=== PATIENT | female | born 1980 | race Hispanic/Latino ===

== ENCOUNTER → 2024-12-15 | Outpatient (CLI) | payer BC, SELFPAY ==
[2024-12-15 15:36] LABS: Basophil# 0.02 X10^3/uL; Basophil% 0.6 % (0-1); Eosinophil# 0.02 X10^3/uL; Eosinophils% 0.6 % (0-5); Hemoglobin 13.2 g/dL (12.0-15.0); Lymphocyte % 24.9 % (19-41); Mean Corpuscular Hgb 29.5 pg (27.0-32.0); Mean Corpuscular Volume 89.3 fL (81-99); Mean Platelet Vol. 12.4 fl (6.2-12.0); Monocyte# 0.35 X10^3/uL; Monocyte% 10.9 % (0-10); NRBC Flagged by Analyzer 0 % (0-5); Neutrophil # 2.01 X10^3/uL (2.7-7.7); Neutrophil % 62.7 % (47-70); Platelet Count 180 K/mm3 (150-450); RBC Distribution Width CV 14.5 % (11.6-14.6); RBC Distribution Width SD 46.8 fl (35.1-43.9); Red Blood Count 4.48 M/mm3 (4.2-5.4); White Blood Count 3.2 K/mm3 (4.4-11.0)
[2024-12-15 16:14] LABS: PTHIN 30 pg/mL (11-61)
[2024-12-15 16:21] LABS: ALB/GLOB Ratio 1.2 RATIO (0.9-2.4); AST(SGOT) 31 U/L (<=31); Alanine Aminotransfer ALT/SGPT 33 U/L (<=34); Albumin, Serum 4.6 g/dL (3.5-5.0); Alkaline Phosphatase 69 U/L (35-104); Anion Gap 12 (5-15); BUN 12 mg/dL (4-19); BUN/Creat Ratio 18.9 RATIO (10-20); Calcium,Total 9.3 mg/dL (7.6-11.0); Carbon Dioxide 21.2 mmol/L (21.0-32.0); Chloride 107 mmol/L (98-108); Cholesterol 190 mg/dL (<=200); Creatinine, Serum 0.63 mg/dL (0.70-1.20); EST Glomerular Filtration Rate 111 (>60); Globulin 3.9 g/dL (2.2-4.2); Glucose 86 mg/dL (70-99); High Density Lipoprotein 73 mg/dL; Low Density Lipoprotein Calc. 106 mg/dL; Potassium 4.1 mmol/L (3.3-5.1); Protein, Total 8.5 g/dL (5.9-8.4); Sodium Level 140 mmol/L (133-145); Triglycerides 57 mg/dL; Very Low Density Lipoprotein 11 mg/dL (5-40)
[2024-12-15 16:25] LABS: CRP < 3.00 mg/L (0.0-3.0)
[2024-12-17 08:08] LABS: Complement C3 70 mg/dL (82-167); PROLACTIN 10.8 ng/mL (4.8-33.4)
[2024-12-18 18:07] LABS: ANA- Speckled Pattern >1:1280 (.); Anti-Centromere B Ab <0.2 AI (0.0-0.9); Anti-Chromatin <0.2 AI (0.0-0.9); Anti-Jo <0.2 AI (0.0-0.9); Anti-Nuclear Antibody Test Positive (.); Anti-Scleroderma-70 AB <0.2 AI (0.0-0.9); Anti-dsDNA Ab 1 IU/mL (0-9); RNP Ab 0.2 AI (0.0-0.9); SJOGREN'S Anti-SS-A test > 8.0 AI (0.0-0.9); SJOGREN'S Anti-SS-B test < 0.2 AI (0.0-0.9); Smith Ab <0.2 AI (0.0-0.9)
== END | disposition home or self-care (01) ==
LOC: MTLAB 13:07
PROVIDERS: PCP Family Medicine; Referring Provider Family Medicine; Visit Provider Family Medicine
DX: D35.2 Benign neoplasm of pituitary gland (principal); Z13.220 Encounter for screening for lipoid disorders; M35.00 Sjogren syndrome, unspecified
CPT/HCPCS: 36415; 80053; 80061; 83970; 84146; 84443; 85025; 86038; 86140; 86160; 86225; 86235

== ENCOUNTER → 2024-12-27 | Outpatient (CLI) | payer BC, SELFPAY ==
--- NOTE | 2024-12-27 11:29 | BI_ITS ---
EXAM: SCRN MAMM (CAD)W/JOSEFINA BILAT 12/27/2024 CLINICAL HISTORY: F, Age 44 y/o , SCREENING TECHNIQUE: Bilateral screening digital breast tomosynthesis with 2D and 3D images. Computer aided detection. COMPARISON: Baseline examination. No priors. FINDINGS: TISSUE DENSITY: The breast tissue is extremely dense which lowers the sensitivity of mammography. The mammogram demonstrates that the patient has dense breasts. Supplemental screening with whole breast ultrasound or MRI may be considered for further evaluation. Bilateral Breast Mammographic Findings: No significant masses, calcifications or other abnormalities are identified. BI/SCRN MAMM (CAD)W/JOSEFINA BILAT IMPRESSION: Right Breast: BIRADS 1 NEGATIVE. Left Breast: BIRADS 1 NEGATIVE. OVERALL FINAL ASSESSMENT: BIRADS 1 NEGATIVE. RECOMMENDATION: Routine annual follow-up in 1 Year A letter with findings and recommendations will be mailed to the patient. Reading Location: [id number]
== END | disposition home or self-care (01) ==
LOC: OPBI 11:28
PROVIDERS: PCP Family Medicine; Referring Provider Family Medicine; Visit Provider Family Medicine
DX: Z12.31 Encounter for screening mammogram for malignant neoplasm of breast (principal)
CPT/HCPCS: 77063; 77067

== ENCOUNTER → 2025-04-26 | Outpatient (CLI) | payer BC, SELFPAY ==
--- NOTE | 2025-04-26 12:21 | BD_ITS ---
PROCEDURE: DEXA BONE DENSITY STUDY 04/26/2025 REASON FOR EXAM: F, age 45 y/o . Sjogren's disease. TECHNIQUE: DEXA BONE DENSITY STUDY COMPARISON: None FINDINGS: BMD and T-SCORES Lumbar spine: 0.878 g/cm2, T-score -1.5 Levels: L1 through L4 Left femoral neck: 0.764 g/cm2, T-score -0.8 Femoral neck comparison data not recommended for monitoring change. Left total hip: 0.783 g/cm2, T-score -1.3 Right femoral neck: 0.742 g/cm2, T-score -1.0 Femoral neck comparison data not recommended for monitoring change. Right total hip: 0.771 g/cm2, T-score -1.4 The World Health Organization has defined the following categories based on bone density: Normal bone density: T-score equal to or greater than -1.0 Osteopenia: T-score between -1.0 and -2.5 Osteoporosis: T-score equal to or less than -2.5 The patient does meet the pharmacological treatment recommendations for prevention of osteoporosis. BD/Dexa Bone Density Study IMPRESSION: OSTEOPENIA. Recommend follow-up as clinically warranted. Reading Location: [place] [id number]
--- OUTSIDE RECORDS SUMMARY | 2025-04-26 19:27 | XMS RPT_ITS | CCD ---
Author Organization [facility] Care Team Providers Care Bait Man Name Role Phone Self, Self Primary Care Provider Unavailsarah beth Martinez MD, Dr. Edge Primary Care Provider Juan SAXENA, Dr. Edge Attending Provider [phone] Juan SAXENA, Dr. Edge Referring Provider [phone] Unavailable Primary Care Provider UnavailJAIME Ramírez Attending Unavailable RIEHM, TIFFANY Referring Unavailable JAIME GEORGE Attending Unavailable RIEHM, TIFFANY Referring Unavailable RIEHM, TIFFANY Referring Unavailable JAIME GEORGE Attending Unavailable RIEHM, TIFFANY Referring Unavailable Self, Self Primary Care Provider Unavailsarah beth Martinez MD, Yasmine A Primary Care Provider [phone] Yasmine Martinez Primary Care Unavailable MartinezYasmine Attending Unavailable Martinez, Yasmine Referring Unavailable Martinez, Yasmine Primary Care Unavailable MartinezYasmine Attending Unavailable Martinez, Yasmine Referring Unavailable Martinez, Yasmine Attending Unavailable Martinez, Yasmine Referring Unavailable Martinez, Yasmine Primary Care Unavailable SMITH, LORE L Attending Unavailable SMITH, LORE L Referring Unavailable SMITH, LORE L Admitting Unavailable SELF, SELF Primary Care Unavailable SMITH, LORE L Attending Unavailable SELF, SELF Primary Care Unavailable SELF, SELF Referring Unavailable SMITH, LORE L Referring Unavailable MARTINEZ, YASMINE A Primary Care Unavailable SMITH, LORE L Attending Unavailable MARTINEZ, YASMINE A Primary Care Unavailable SELF, SELF Referring Unavailable SMITH, LORE L Admitting Unavailable SMITH, LORE L Attending Unavailable SELF, SELF Primary Care Unavailable RIEHM, TIFFANY L Referring Unavailable RIEHM, TIFFANY L Attending Unavailable SELF, SELF Primary Care Unavailable SELF, SELF Primary Care Unavailable SELF, SELF Referring Unavailable TARIK CA Attending Unavailable MARTINEZ, YASMINE A Primary Care Unavailable ANA GRECO Attending Unavailable ANA GRECO Referring Unavailable SELF, SELF Primary Care Unavailable RIEHM, TIFFANY L Referring Unavailable RIEHM, TIFFANY L Attending Unavailable SELF, SELF Primary Care Unavailable RIEHM, TIFFANY L Referring Unavailable RIEHM, TIFFANY L Attending Unavailable RIEHM, TIFFANY L Attending Unavailable SELF, SELF Primary Care Unavailable SELF, SELF Referring Unavailable RIEHM, TIFFANY L Referring Unavailable MARTINEZ, YASMINE A Primary Care Unavailable ANA GRECO Attending Unavailable RIEHM, TIFFANY L Attending Unavailable SELF, SELF Referring Unavailable SELF, SELF Primary Care Unavailable TATO WILCOX Attending Unavailable JUAN, YASMINE A Primary Care Unavailable TATO WILCOX Referring Unavailable SHANNAN GOMEZ Attending Unavailable MORALES SMITH Referring Unavailable JUAN, YASMINE A Primary Care Unavailable JUAN YASMIEN A Primary Care Unavailable TATO WILCOX Attending Unavailable TATO WILCOX Referring Unavailable TATO WILCOX Attending Unavailable JUAN, YASMINE A Primary Care Unavailable TATO WILCOX M Referring Unavailable TATO WILCOX M Attending Unavailable JUAN YASMINE A Primary Care Unavailable TATO WILCOX Referring Unavailable Yasmine Martinez MD Primary Care Provider [phone] Medications Current Medications Medication Drug Class(es) Dates Sig (Normalized) Sig (Original) ascorbic acid 1000 mg oral tablet (6 sources) Vitamin C take 1 tablet by mouth once daily Ascorbic Acid 1000 MG tablet Take 1 tablet by mouth daily. Active aspirin 325 mg oral tablet (3 sources) Platelet Aggregation Inhibitor, Nonsteroidal Anti-inflammatory Drug Start: 03-26-2025 take 1 tablet by mouth once daily Aspirin 325 MG tablet Take 1 by mouth daily. 42 tablet 03/26/2025 Active B Complex capsule (3 sources) take 1 capsule by mouth once daily B Complex capsule Take 1 capsule by mouth daily. Active celecoxib 100 mg oral capsule (3 sources) Nonsteroidal Anti-inflammatory Drug Start: 03-09-2025 take 1 capsule by mouth twice daily as needed for pain Celecoxib 100 MG capsule Indications: Neck pain , Pain of cervical facet joint , Myofascial pain syndrome, cervical , Cervicogenic headache 1 po bid prn pain. Dont take other NSAIDs w this. Stop if persistent stomach pain. 20 capsule 1 03/09/2025 Active DISABILITY PLACARD (3 sources) Start: 03-26-2025 End: 06-29-2025 DISABILITY PLACARD End Date: 06/29/2025 1 Each 03/26/2025 06/29/2025 Active folic acid 0.4 mg oral tablet (6 sources) take 1 tablet by mouth once daily Folic Acid 400 MCG tablet Take 1 tablet by mouth daily. Active magnesium oxide 400 mg oral tablet (3 sources) take 1 tablet by mouth once daily magnesium oxide 400 MG tablet Take 1 tablet by mouth daily. Active oxyCODONE hydrochloride 5 mg oral tablet (4 sources) Opioid Agonist Start: 03-26-2025 End: 03-30-2025 oxyCODONE 5 MG tablet Indications: Tear of lateral meniscus of right knee, unspecified tear type, unspecified whether old or current tear, subsequent encounter Take 1-2 by mouth every 8 hours as needed for pain. Patient requires >30 MED per day and/or >7 days of medication due to orthopedic surgery. 20 tablet 03/26/2025 Active Start: 03-26-2025 End: 03-26-2025 take 1 tablet by mouth every four hours as needed 5 mg, Oral, EVERY 4 HOURS NEEDED, Starting on Wed03/26/25 at 0838, Until Wed03/26/25 at 1247, Moderate Pain, Recovery Start: 03-26-2025 5 mg, Oral, NEEDED, 1 dose, Starting on Wed03/26/25 at 0838, Until Wed03/26/25 at 0859, Moderate Pain, May give once at least one hour post oxycodone prn order if dose previously documented as ineffective and did not result in adverse effects (RR less than 10, negative change in RASS of 2 or more). , Recovery promethazine hydrochloride 12.5 mg oral tablet (3 sources) Phenothiazine Start: 03-26-2025 take 1 tablet by mouth every twelve hours as needed for nausea Promethazine HCl 12.5 MG tablet Take 1 by mouth every 12 hours as needed for nausea. 20 tablet 03/26/2025 Active propranolol hydrochloride 10 mg oral tablet (6 sources) beta-Adrenergic Jermain Start: 01-21-2025 Propranolol 10 MG tablet 01/21/2025 Active tiZANidine 2 mg oral tablet (3 sources) Central alpha-2 Adrenergic Agonist Start: 03-09-2025 take 1-2 tablets by mouth twice daily as needed for pain Tizanidine 2 MG tablet 1-2 pills po BID prn spasms/pain 20 tablet 1 03/09/2025 Active Completed/Discontinued Medications Medication Drug Class(es) Dates Sig (Normalized) Sig (Original) calcium chloride 0.0014 meq/ml / potassium chloride 0.004 meq/ml / sodium chloride 0.103 meq/ml / sodium lactate 0.028 meq/ml injectable solution (1 source) Start: 03-26-2025 End: 03-26-2025 Intravenous, at 20 mL/hr, CONTINUOUS, Starting on Wed03/26/25 at 0630, Until Wed03/26/25 at 1247, Pre-op/Pre-Proc clonazePAM 0.5 mg disintegrating oral tablet (6 sources) Benzodiazepine clonazePAM 0.5 M G Tab Dispersible tablet daily. Stopped taking temporarily leading up surgery Active 2 ml fentaNYL 0.05 mg/ml injection (1 source) Opioid Agonist Start: 03-26-2025 End: 03-26-2025 25 mcg, Intravenous, Administer over 2 Minutes, EVERY 10 MINUTES NEEDED, 4 doses, Starting on Wed03/26/25 at 0838, Until Wed03/26/25 at 0931, Severe Pain, Recovery 1 ml haloperidol 5 mg/ml prefilled syringe (1 source) Typical Antipsychotic Start: 03-26-2025 End: 03-26-2025 take 1 mg intravenously every hour as needed 1 mg, Intravenous, EVERY 1 HOUR NEEDED, 2 doses, Starting on Wed03/26/25 at 0838, Until Wed03/26/25 at 1247, Nausea, SECOND line antiemetic, Recovery lidocaine 0.9% buffered in sodium phosphate injection SOSY 1 mL (1 source) Start: 03-26-2025 End: 03-26-2025 take 1 dose intravenously once 1 mL, Intradermal, ONCE NEEDED, 1 dose, Starting on Wed03/26/25 at 0625, Until Wed03/26/25 at 1247, Other, Use for peripheral IV insertion, Use when inserting peripheral IV., Pre-op/Pre-Proc meloxicam 7.5 mg oral tablet (5 sources) Nonsteroidal Anti-inflammatory Drug Start: 11-29-2024 End: 2025 take 1 tablet by mouth once daily Meloxicam 7.5 MG tablet Indications: Primary osteoarthritis of right knee Take 1 tablet by mouth daily. 30 tablet 1 11/29/2024 2025 Discontinued 2 ml ondansetron 2 mg/ml injection (1 source) Serotonin-3 Receptor Antagonist Start: 03-26-2025 End: 03-26-2025 4 mg, Intravenous, ONCE NEEDED, 1 dose, Starting on Wed03/26/25 at 0838, Until Wed03/26/25 at 0948, Nausea / Vomiting, FIRST line antiemetic, Do not administer within 6 hours of intra-operative dose., Recovery 250 ml sodium chloride 9 mg/ml injection (1 source) Start: 03-26-2025 End: 03-26-2025 Intravenous, at 20 mL/hr, CONTINUOUS, Starting on Wed03/26/25 at 0630, Until Wed03/26/25 at 1247, Pre-op/Pre-Proc Problems Active Problems Problem Classification Problem Date Documented Date Episodic/Chronic Immunizations and screening for infectious disease (4 sources) Contact with or exposure to other viral diseases; Translations: [Exposure to confirmed case of COVID-19] Onset: 03-08-2025 2025 Episodic Joint disorders and dislocations; trauma-related (10 sources) Tear of lateral meniscus of knee; Translations: [Other tear of lateral meniscus, current injury, right knee, initial encounter] Onset: 02-16-2025 02-16-2025 Episodic Osteoarthritis (10 sources) Osteoarthritis of right knee joint; Translations: [Unilateral primary osteoarthritis, right knee] Onset: 12-05-2024 11-29-2024 Chronic Other connective tissue disease (3 sources) Rotator cuff impingement syndrome; Translations: [Impingement syndrome of unspecified shoulder] Onset: 03-08-2025 03-08-2025 Episodic Other connective tissue disease (2 sources) Pain in bilateral legs; Translations: [Pain in right leg] 04-25-2025 Episodic Other fractures (1 source) Wedge compression fracture of T5-T6 vertebra, initial encounter for closed fracture; Translations: [Wedge compression fracture of T5-T6 vertebra, initial encounter for closed fracture] Onset: 04-05-2025 Episodic Other nervous system disorders (2 sources) Other chronic pain; Translations: [Other chronic pain] Onset: 2025 Chronic Other nervous system disorders (2 sources) Numbness of lower limb ; Translations: [Anesthesia of skin] 04-25-2025 Episodic Other non-traumatic joint disorders (6 sources) Pain in right knee; Translations: [Pain in joint, lower leg] Onset: 2025 11-28-2024 Episodic Other non-traumatic joint disorders (3 sources) Joint pain; Translations: [Pain in unspecified joint] Onset: 03-08-2025 03-08-2025 Episodic Other upper respiratory infections (3 sources) Sore throat symptom; Translations: [Acute pharyngitis, unspecified] Onset: 2025 2025 Episodic Residual codes; unclassified (1 source) History of arthroscopy of knee joint; Translations: [Other specified postprocedural states] 04-06-2025 Episodic Residual codes; unclassified (4 sources) Other specified postprocedural states; Translations: [Other specified postprocedural states] Onset: 04-06-2025 Episodic Spondylosis; intervertebral disc disorders; other back problems (3 sources) Degeneration of cervical intervertebral disc; Translations: [Other cervical disc degeneration, unspecified cervical region] Onset: 03-08-2025 03-08-2025 Chronic Spondylosis; intervertebral disc disorders; other back problems (7 sources) Neck pain; Translations: [Cervicalgia] Onset: 03-08-2025 03-08-2025 Episodic Systemic lupus erythematosus and connective tissue disorders (3 sources) Sjogren's syndrome; Translations: [Sicca syndrome, unspecified] Onset: 03-08-2025 03-08-2025 Chronic Unclassified (3 sources) Chronic pain of right knee 01-11-2025 Unclassified (1 source) Contact with and (suspected) exposure to covid-19; Translations: [Contact with and (suspected) exposure to covid-19] Onset: 2025 Past or Other Problems Problem Classification Problem Date Documented Da te Episodic/Chronic Other and unspecified benign neoplasm (1 source) Benign neoplasm of pituitary gland; Translations: [Benign neoplasm of pituitary gland] Onset: 12-18-2024 Episodic Other screening for suspected conditions (not mental disorders or infectious disease) (1 source) Encounter for screening mammogram for malignant neoplasm of breast; Translations: [Encounter for screening mammogram for malignant neoplasm of breast] Onset: 01-01-2025 Episodic Unclassified (1 source) Tear of lateral meniscus of right knee, unspecified tear type, unspecified whether old or current tear, subsequent encounter 07-14-2025 Unclassified (1 source) Contact with and (suspected) exposure to covid-19; Translations: [Contact with and (suspected) exposure to covid-19] Onset: 2025 Results Test Name Value Interpretation Reference Range Facility EMG & NERVE CONDUCTIONon Dash Vazquez MD 04/25/2025 11:26 AM Dash Vazquez MD 04/25/2025 11:23 AM Study: EMG/NCS bilateral lower extremities Date: 04/25/2025 Patient Name: Dee Holland Patient : 1980 Reason for study: 45 y.o. female, history of Sjogren disease, who presents with pain, paresthesia and weakness of the right leg. Preliminary Impression: This is a normal study. There is no electrodiagnostic evidence found of a neuropathy, myopathy or of a lumbar radiculopathy. Final, full report to be scanned as soon as possible. [facility] POCT RAPID STREP AOrdered By : Vandana Fierro on 2025 S. pyogenes Ag Ql (Throat) Negative (+/-) [facility] SARS-COV-2 RAPID AG (WIC)on 2025 SARS-CoV-2 (COVID-19) RNA CHELE+probe Ql (Unsp spec) Not detected Normal NOT DETECTED [facility] Comment on above: Result Comment: Nega tive results should be treated as presumptive and confirmation with a molecular assay, if necessary, for patient management, may be performed. Negative results do not rule out SARSCoV-2 infection and should not be used as the sole basis for treatment or patient management decisions, including infection control decisions. Negative results should be considered in the context of a patient's recent exposures, history and the presence of clinical signs and symptoms consistent with COVID-19. Performed By: #### C COVAG #### [place] [address] NARRATIVE This test was performed using lateral flow immunoassay. This test does not differentiate between SARS-CoV and SARS-CoV2. Normal [facility] Comment on above: Performed By: #### C COVAG #### [place] [address] SARS-COV-2 RAPID ANTIGEN (CL INIC ONLY)on 2025 SARS-CoV-2 (COVID-19) RNA CHELE+probe Ql (Unsp spec) This test was performed using lateral flow immunoassay. This test does not differentiate between SARS-CoV and SARS-CoV2. [facility] SARS-CoV-2 (COVID-19) RNA NA A+probe Ql (Unsp spec)on 2025 SARS-CoV-2 (COVID-19) Ag IA.rapid Ql (Resp) Not detected NOT DETECTED [facility] Comment on above: Negative results keny uld be treated as presumptive and confirmation with a molecular assay, if necessary, for patient management, may be performed. Negative results do not rule out SARSCoV-2 infection and should not be used as the sole basis for treatment or patient management decisions, including infection control decisions. Negative results should be considered in the context of a patient's recent exposures, history and the presence of clinical signs and symptoms consistent with COVID-19. [facility] MRI KNEE RIGHT WITHOUT CONTR Shorty 02-02-2025 MRI KNEE RIGHT WITHOUT CONTRAST EXAM: MRI KNEE RIGHT WITHOUT CONTRAST, 02/02/2025 12:51 PM EDT INDICATION: pain COMPARISON: None. TECHNIQUE: Multiplanar multisequence MR imaging of the right knee was performed without contrast. FINDINGS: There is a complex tear involving the posterior horn of the medial meniscus with diminutive appearance. A portion of this is a horizontal/oblique tear. There is also irregular tearing/fraying involving the upper portion of the posterior root. No displaced meniscal material. There is evidence of mild degenerative changes with chondral thinning of the medial compartment. Lateral compartment articular cartilage preserved and the lateral meniscus is normal. Small cyst along the posterior/medial aspect of the knee appears related to cyst from the meniscal tear. Patellofemoral alignment is normal and the patellofemoral cartilage is preserved. Small volume knee joint fluid present. All of the imaged ligaments and tendons are intact. The marrow signal is normal. There is no other substantial finding identified. IMPRESSION: No acute ligament or tendon tear. Complex tear of the posterior horn and posterior root of the medial meniscus. Mild medial compartment degenerative changes. No acute bony abnormality. Please see above for any further details. Normal [facility] THERAPY NTon 01-05-2025 THERAPY NT HNO ID: [id number] Author: JAIME GEORGE PT Service: ? Author Type: Physical Therapist Type: Therapy (PT/OT/Speech/Resp) Filed: 01/05/2025 10:05 Note Text: Program_ID:[id number] Access Code: [email or web address] URL: [email or web address] Date: 01-05-2025 Prepared By: Jaime George Program Notes Exercises - Sidelying Hip Abduction - 1 x daily - 7 x weekly - 3 sets - 10 reps - Sidelying Bent Knee Hip Flexion - 1 x daily - 7 x weekly - 3 sets - 10 reps - Sidelying Hip Circles - 1 x daily - 7 x weekly - 3 sets - 10 reps - Clamshell - 1 x daily - 7 x weekly - 3 sets - 10 reps - Supine Hip Extension on Bench - 1 x daily - 7 x weekly - 3 sets - 10 reps - Supine Active Straight Leg Raise - 1 x daily - 7 x weekly - 3 sets - 20 reps - Supine Heel Slide - 1 x daily - 7 x weekly - 3 sets - 10 reps Normal [facility] CNTHERAPYon 01-03-2025 CNTHERAPY OT/PT/Speech Visit (PTWS) DEE MUIR ([id number]) 1980 F Date Time Provider Department 01/03/25 10:30 AM JAIME GEORGE PTTOMMY Date Time Provider Department Center 01/03/2025 10:30 AM [id number], SEAN PTTOMMY Villalpando Reason for Visit: PT Discharge [752] Primary Visit Diagnosis:Primary localized osteoarthritis of right knee [M17.11] Allergies As of Date: 01/03/2025 (Not on File) Date Reviewed: Never Reviewed Green Building Engineer: Therapy (PT/OT/Speech/Resp) ID: [id number] 01/05/2025 10:05 AM Author: JAIME GEORGE Signed by JAIME GEORGE PT on 01/05/2025 at 10:05 AM Document text: Program_ID:[id number] Access Code: [email or web address] URL: [email or web address] Date: 01-05-2025 Prepared By: Jaime George Program Notes Exercises - Sidelying Hip Abduction - 1 x daily - 7 x weekly - 3 sets - 10 reps - Sidelying Bent Knee Hip Flexion - 1 x daily - 7 x weekly - 3 sets - 10 reps - Sidelying Hip Circles - 1 x daily - 7 x weekly - 3 sets - 10 reps - Clamshell - 1 x daily - 7 x weekly - 3 sets - 10 reps - Supine Hip Extension on Bench - 1 x daily - 7 x weekly - 3 sets - 10 reps - Supine Active Straight Leg Raise - 1 x daily - 7 x weekly - 3 sets - 20 reps - Supine Heel Slide - 1 x daily - 7 x weekly - 3 sets - 10 reps -------- Therapy (PT/OT/Speech/Resp) ID: [id number] 01/03/2025 10:58 AM Author: JAIME GEORGE Signed by JAIME GEORGE PT on 01/03/2025 at 10:58 AM Document text: Program_ID:[id number] Access Code: [email or web address] URL: [email or web address]/ Date: 01-03-2025 Prepared By: Jaime George Program Notes Exercises - Sidelying Hip Abduction - 1 x daily - 7 x weekly - 3 sets - 10 reps - Sidelying Bent Knee Hip Flexion - 1 x daily - 7 x weekly - 3 sets - 10 reps - Sidelying Hip Circles - 1 x daily - 7 x weekly - 3 sets - 10 reps - Clamshell - 1 x daily - 7 x weekly - 3 sets - 10 reps - Supine Hip Extension on Bench - 1 x daily - 7 x weekly - 3 sets - 10 reps - Supine Active Straight Leg Raise - 1 x daily - 7 x weekly - 3 sets - 20 reps - Supine Heel Slide - 1 x daily - 7 x weekly - 3 sets - 10 reps -------- Normal [facility] THERAPY NTon 01-03-2025 THERAPY NT HNO ID: [id number] Author: JAIME GEORGE PT Service: ? Author Type: Physical Therapist Type: Therapy (PT/OT/Speech/Resp) Filed: 01/03/2025 10:58 Note Text: Program_ID:[id number] Access Code: [email or web address] URL: [email or web address] Date: 01-03-2025 Prepared By: Jaime George Program Notes Exercises - Sidelying Hip Abduction - 1 x daily - 7 x weekly - 3 sets - 10 reps - Sidelying Bent Knee Hip Flexion - 1 x daily - 7 x weekly - 3 sets - 10 reps - Sidelying Hip Circles - 1 x daily - 7 x weekly - 3 sets - 10 reps - Clamshell - 1 x daily - 7 x weekly - 3 sets - 10 reps - Supine Hip Extension on Bench - 1 x daily - 7 x weekly - 3 sets - 10 reps - Supine Active Straight Leg Raise - 1 x daily - 7 x weekly - 3 sets - 20 reps - Supine Heel Slide - 1 x daily - 7 x weekly - 3 sets - 10 reps Normal [facility] Breast imaging reportOrdered By: Shireen Sen on 12-27-2024 Study report [facility] Imaging Services [address] [place] [address] SCRN MAMM (CAD)W/JOSEFINA BILAT MR#: [id number] Acct: [id number] Name: DEE MUIR Rep #: [id number] : 1980 F 44 From: Yoselin Sen MD PCP: Dr. Yasmine Martinez MD Status: REG CLI Study:SCRN MAMM (CAD)W/JOSEFINA BILAT Date of Exa m: 12/27/24 Exam# [id number] Ordering Dr: Alden Martinez MD EXAM: SCRN MAMM (CAD)W/JOSEFINA BILAT 12/27/2024 CLINICAL HISTORY: F, Age 44 y/o , SCREENING TECHNIQUE: Bilateral screening digital breast tomosynthesis with 2D and 3D images. Computeraided detection. COMPARISON: Baseline examination. No priors. FINDINGS: TISSUE DENSITY: The breast tissue is extremely dense which lowers the sensitivity of mammography. The mammogram demonstrates that the patient has dense breasts. Supplemental screening with whole breast ultrasound or MRI may be considered for further evaluation. Bilateral Breast Mammographic Findings: No significant masses, calcifications or other abnormalities are identified. BI/SCRN MAMM (CAD)W/JOSEFINA BILAT IMPRESSION: Right Breast: BIRADS 1 NEGATIVE. Left Breast: BIRADS 1 NEGATIVE. OVERALL FINAL ASSESSMENT: BIRADS 1 NEGATIVE. RECOMMENDATION: Routine annual follow-up in 1 Year A letter with findings and recommendations will be mailed to the patient. Reading Location: [facility] CC: Dr. Yasmine Martinez MD ~ Clinical Nutritionist: Signed [facility] CNTHERAPYon 12-27-2024 CNTHERAPY OT/PT/Speech Visit (PTWS) DEE DEE HOLLAND ([id number]) 1980 F Date Time Provider Department 12/27/24 10:30 AM JAIME GEORGE PTWS Date Time Provider Department Center 12/27/2024 10:30 AM [id number], SEAN PTWS Thom Villalpando Reason for Visit: Physical Therapy [503] Primary Visit Diagnosis:Primary localized osteoarthritis of right knee [M17.11] Allergies As of Date: 12/27/2024 (Not on File) Date Reviewed: Never Reviewed Normal [facility] SCRN MAMM (CAD)W/JOSEFINA BILATo n 12-27-2024 SCRN MAMM (CAD)W/JOSEFINA BILAT [facility] [address] [place], [place] [address] SCRN MAMM (CAD)W/JOSEFINA BILAT MR#: [id number] Acct: [id number] Name: DEE MUIR Rep #: [id number] : 1980 F 44 From: Shireen Sen MD PCP: Dr. Yasmine Martinez MD Status: REG CLI Study: SCRN MAMM (CAD)W/JOSEFINA BILAT Date of Exam: 12/12 03/07 Exam# [id number] Ordering Dr: Yasmine Martinez MD EXAM: SCRN MAMM (CAD)W/JOSEFINA BILAT 12/27/2024 CLINICAL HISTORY: F, Age 44 y/o , SCREENING TECHNIQUE: Bilateral screening digital breast tomosynthesis with 2D and 3D images. Computer aided detection. COMPARISON: Baseline examination. No priors. FINDINGS: TISSUE DENSITY: The breast tissue is extremely dense which lowers the sensitivity of mammography. The mammogram demonstrates that the patient has dense breasts. Supplemental screening with whole breast ultrasound or MRI may be considered for further evaluation. Bilateral Breast Mammographic Findings: No significant masses, calcifications or other abnormalities are identified. BI/SCRN MAMM (CAD)W/JOSEFINA BILAT IMPRESSION: Right Breast: BIRADS 1 NEGATIVE. Left Breast: BIRADS 1 NEGATIVE. OVERALL FINAL ASSESSMENT: BIRADS 1 NEGATIVE. RECOMMENDATION: Routine annual follow-up in 1 Year A letter with findings and recommendations will be mailed to the patient. Reading Location: [facility] CC: Dr. Yasmine Martinez MD Clinical Nutritionist: Signed Normal [facility] CNTHERAPYon 04-09-2025 CNTHERAPY OT/PT/Speech Visit (PTWS) DEE HAMILTONIADEE JOHNSTON ([id number]) 1980 F Date Time Provider Department 12/20/24 2:45 PM ANA ROSA TANNER Date Time Provider Department [place] 12/20/2024 2:45 PM [id number] ROSA TANNER [facility] Reason for Visit: Physical Therapy [503] Primary Visit Diagnosis:Primary localized osteoarthritis of right knee [M17.11] Allergies As of Date: 12/20/2024 (Not on File) Date Reviewed: Never Reviewed Normal [facility] KAMRYN Comprehensive Panelon KAMRYN TABLE Comment Normal . [facility] Comment on above: Result Comment: Auto antibody Disease Association --- Condition Frequency --------- Antinuclear Antibody, SLE, mixed connective Direct (KAMRYN-D) tissue diseases --------- dsDNA SLE 40 - 60% --------- Chromatin Drug induced SLE 90% SLE 48 - 97% --------- SSA (Ro) SLE 25 - 35% Sjogren's Syndrome 40 - 70% Lupus 100% --------- SSB (La) SLE 10% Sjogren's Syndrome 30% --------- Sm (anti-Martinez) SLE 15 - 30% --------- ATTORNEY LAWYER Mixed Connective Tissue Disease 95% (U1 nRNP, SLE 30 - 50% anti-ribonucleoprotein) Polymyositis and/or Dermatomyositis 20% --------- Scl-70 (antiDNA Scleroderma (diffuse) 20 - 35% topoisomerase) Crest 13% --------- Latosha-1 Polymyositis and/or Dermatomyositis 20 - 40% --------- Centromere B Scleroderma - Crest variant 80% AMENDED REPORT 12/18/241806 COMMENT previously reported as: Test not performed Performed By: #### L 3100.5400, L3100.5700, L3100.5800, L3100.7950, L3100.5440, L100.0100, L509.1000, L501.6710, L500.4050, L500.4100, L501.9520 #### [facility] [address] [place], [place], [id number] ANTI-CENT B AB <0.2 Normal 0.0-0.[address] [facility] Comment on above: Result Comment: AMENDED REPORT 12/18/241806 ANTI-CENT B previously reported as: Test not performed Performed By: #### L 3100.5400, L3100.5700, L3100.5800, L3100.7950, L3100.5440, L100.0100, L509.1000, L501.6710, L500.4050, L500.4100, L501.9520 #### [facility] [address] [place], [address] ANTI-DNA (DS)AB 1 IU/mL Normal 0-[address] [facility] Comment on above: Result Comment: Nega tive <5 Equivocal 5 - 9 Positive >9 AMENDED REPORT 12/18/241806 dsDNA AB previously reported as: Test not performed Performed By: #### L 3100.5400, L3100.5700, L3100.5800, L3100.7950, L3100.5440, L100.0100, L509.1000, L501.6710, L500.4050, L500.4100, L501.9520 #### [facility] [address] [place], [address] ANTI-LATOSHA-1 <0.2 Normal 0.0-0.[address] [facility] Comment on above: Result Comment: AMENDED REPORT 12/18/241806 ANTI-LATOSHA previously reported as: Test not performed Performed By: #### L 3100.5400, L3100.5700, L3100.5800, L3100.7950, L3100.5440, L100.0100, L509.1000, L501.6710, L500.4050, L500.4100, L501.9520 #### [facility] [address] [place], [place], [id number] ANTI-SS-A > 8.0 High 0.0-0.[address] [facility] Comment on above: Result Comment: AMENDED REPORT 12/18/241806 Anti-SS-A previously reported as: Test not performed Performed By: #### L 3100.5400, L3100.5700, L3100.5800, L3100.7950, L3100.5440, L100.0100, L509.1000, L501.6710, L500.4050, L500.4100, L501.9520 #### [facility] [address] [place], [address] ANTI-SS-B < 0.2 Normal 0.0-0.[address] [facility] Comment on above: Result Comment: AMENDED REPORT 12/18/241806 Anti-SS-B previously reported as: Test not performed Performed By: #### L 3100.5400, L3100.5700, L3100.5800, L3100.7950, L3100.5440, L100.0100, L509.1000, L501.6710, L500.4050, L500.4100, L501.9520 #### [facility] [address] [place], [address] ANTICHROMATIN <0.2 Normal 0.0-0.[address] [facility] Comment on above: Result Comment: AMENDED REPORT 12/18/241806 ANTICHROMATIN previously reported as: Test not performed Performed By: #### L 3100.5400, L3100.5700, L3100.5800, L3100.7950, L3100.5440, L100.0100, L509.1000, L501.6710, L500.4050, L500.4100, L501.9520 #### [facility] [address], [place], [id number] ANTISCLERODERM <0.2 Normal 0.0-0.[address] [facility] Comment on above: Result Comment: AMENDED REPORT 12/18/241806 ANTISCLER previously reported as: Test not performed Performed By: #### L 3100.5400, L3100.5700, L3100.5800, L3100.7950, L3100.5440, L100.0100, L509.1000, L501.6710, L500.4050, L500.4100, L501.9520 #### [facility] [address] [place], [address] ATTORNEY LAWYER Ab 0.2 AI Normal 0.0-0.[address] [facility] Comment on above: Result Comment: AMENDED REPORT 12/18/241806 ATTORNEY LAWYER Ab previously reported as: Test not performed Performed By: #### L 3100.5400, L3100.5700, L3100.5800, L3100.7950, L3100.5440, L100.0100, L509.1000, L501.6710, L500.4050, L500.4100, L501.9520 #### [facility] [address] [place], [place], [id number] MARTINEZ Ab <0.2 Normal 0.0-0.[address] [facility] Comment on above: Result Comment: AMENDED REPORT 12/18/241806 MARTINEZ Ab previously reported as: Test not performed Performed By: #### L 3100.5400, L3100.5700, L3100.5800, L3100.7950, L3100.5440, L100.0100, L509.1000, L501.6710, L500.4050, L500.4100, L501.9520 #### [facility] [address] [place], [address] Antinuclear Antibody, IFAon 12-18-2024 KAMRYN, IFA Positive Abnormal . [facility] Comment on above: Result Comment: Nega tive <1:80 Borderline 1:80 Positive >1:80 Performed By: #### L 3100.5400, L3100.5700, L3100.5800, L3100.7950, L3100.5440, L100.0100, L509.1000, L501.6710, L500.4050, L500.4100, L501.9520 #### [facility] [address] [place], [place], [id number] KAMRYN-NOTE Comment Normal . [facility] Comment on above: Result Comment: Bibi sullivan Potential Disease Association Homogeneous Systemic Lupus Erythematosus, Drug Induced Systemic Lupus Erythematosus, Chronic Autoimmune hepatitis, Juvenile Idiopathic Arthritis Speckled Sjogren Syndrome, Systemic Lupus Erythematosus, Subacute Cutaneous Lupus, Lupus, Congenital Heart Block, Mixed Connective Tissue Disease, Scleroderma-diffuse, Scleroderma-Autoimmune Myositis Overlap Syndrome, Systemic Lupus Dlxbayhrbypur-Pjvtxgzdhqu-Pzduftdjla Myositis Overlap Syndrome, Systemic Autoimmune Rheumatic Disease, Undifferentiated Connective Tissue Disease Nucleolar Systemic Sclerosis, Scleroderma-Autoimmune Myositis Overlap Syndrome, Sjogren Syndrome, Raynaud phenomenon, Pulmonary Arterial Hypertension, Systemic Autoimmune Rheumatic Disease, Cancer Centromere Scleroderma-CREST, Limited Cutaneous SSc, Raynaud's Phenomenon, Primary Biliary Cholangitis Nuclear Dot Primary Biliary Cholangitis Nuclear Primary Biliary Cholangitis, Autoimmune Membrane Hepatitis/Liver disease, Systemic Autoimmune Rheumatic Disease, Autoimmune Cytopenias, Linear Scleroderma, Antiphospholipid Syndrome Performed at: [address] [id number] Cooking Teacher: Zack Hendricks PhD, Phone: [phone] Performed By: #### L 3100.5400, L3100.5700, L3100.5800, L3100.7950, L3100.5440, L100.0100, L509.1000, L501.6710, L500.4050, L500.4100, L501.9520 #### [facility] [place], [address] CENTRIOLE TNP Normal . [facility] Comment on above: Performed By: #### L 3100.5400, L3100.5700, L3100.5800, L3100.7950, L3100.5440, L100.0100, L509.1000, L501.6710, L500.4050, L500.4100, L501.9520 #### [facility] [address] [place], [place], [id number] (205) CENTROMERE PAT. TNP Normal . [facility] Comment on above: Performed By: #### L 3100.5400, L3100.5700, L3100.5800, L3100.7950, L3100.5440, L100.0100, L509.1000, L501.6710, L500.4050, L500.4100, L501.9520 #### [facility] [address] [place], [place], [id number] HOMOGENEOUS PAT TNP Normal . [facility] Comment on above: Performed By: #### L 3100.5400, L3100.5700, L3100.5800, L3100.7950, L3100.5440, L100.0100, L509.1000, L501.6710, L500.4050, L500.4100, L501.9520 #### [facility] [address] [place], [place], [id number] MIDBODY TNP Normal . [facility] Comment on above: Performed By: #### L 3100.5400, L3100.5700, L3100.5800, L3100.7950, L3100.5440, L100.0100, L509.1000, L501.6710, L500.4050, L500.4100, L501.9520 #### [facility] [address] [place], [place], [id number] NUCLEAR DOT TNP Normal . [facility] Comment on above: Performed By: #### L 3100.5400, L3100.5700, L3100.5800, L3100.7950, L3100.5440, L100.0100, L509.1000, L501.6710, L500.4050, L500.4100, L501.9520 #### [facility] [address] [place], [place], [id number] NUCLEAR MEMBRAN TNP Normal . [facility] Comment on above: Performed By: #### L 3100.5400, L3100.5700, L3100.5800, L3100.7950, L3100.5440, L100.0100, L509.1000, L501.6710, L500.4050, L500.4100, L501.9520 #### [facility] [address] [place], [place], [id number] NUCLEOLAR PAT. TNP Normal . [facility] Comment on above: Performed By: #### L 3100.5400, L3100.5700, L3100.5800, L3100.7950, L3100.5440, L100.0100, L509.1000, L501.6710, L500.4050, L500.4100, L501.9520 #### [facility] [address] [place], [place], [id number] PNCA TNP Normal . [facility] Comment on above: Performed By: #### L 3100.5400, L3100.5700, L3100.5800, L3100.7950, L3100.5440, L100.0100, L509.1000, L501.6710, L500.4050, L500.4100, L501.9520 #### [facility] [address] [place], [place], [address] SPECKLED PAT. >1:[address] [facility] Comment on above: Result Comment: ICAP nomenclature: AC-2,4,5,29 Performed By: #### L 3100.5400, L3100.5700, L3100.5800, L3100.7950, L3100.5440, L100.0100, L509.1000, L501.6710, L500.4050, L500.4100, L501.9520 #### [facility] [address] [place], [place], [address] SPINDLE APPARAT TNP Normal . [facility] Comment on above: Performed By: #### L 3100.5400, L3100.5700, L3100.5800, L3100.7950, L3100.5440, L100.0100, L509.1000, L501.6710, L500.4050, L500.4100, L501.9520 #### [facility] [address] [place], [place], [id number] Complement C3on 12-17-2024 COMP C3 70 mg/dL Low 82-[address] [facility] Comment on above: Result Comment: Perf ormed at: [facility] [address] [id number] Cooking Teacher: Zack Hendricks PhD, Phone: [phone] Performed By: #### L 3100.5400, L3100.5700, L3100.5800, L3100.7950, L3100.5440, L100.0100, L509.1000, L501.6710, L500.4050, L500.4100, L501.9520 #### [facility] [address] [place], [place], [id number] Complement C4on 12-17-2024 COMPLEMENT, C4 9 mg/dL Low 12-[address] [facility] Comment on above: Performed By: #### L 3100.5400, L3100.5700, L3100.5800, L3100.7950, L3100.5440, L100.0100, L509.1000, L501.6710, L500.4050, L500.4100, L501.9520 #### [facility] [address] [place], [place], [id number] PROLACTIN 4465on 12-17-2024 PROLACTIN 10.8 ng/mL Normal 4.8-33.[address] [facility] Comment on above: Performed By: #### L 3100.5400, L3100.5700, L3100.5800, L3100.7950, L3100.5440, L100.0100, L509.1000, L501.6710, L500.4050, L500.4100, L501.9520 #### [facility] [address] [place], [place], [address] Absolute neutrophil countOrd ered By: Yasmine Martinez on 12-15-2024 Neutrophils (Bld) [#/Vol] 2.0 10*3/uL 2.0-7.[address] [facility] Anion gap in Serum or Plasma Ordered By: Yasmine Martinez on 12-15-2024 Anion gap [Moles/Vol] 12 mmol/L 5-15 [facility] Antinuclear antibody (KAMRYN) a ssayOrdered By: Yasmine Martinez on 12-15-2024 Anti-Nuclear Antibody Screen Positive High . [facility] Comment on above: Negative <1:80 Borde rline 1:80 Positive >1:80 BUN/creatinine ratioOrdered By: Yasmine Martinez on 12-15-2024 Urea nitrogen/Creatinine [Mass ratio] 18.9 mg/mg 10-[address] [facility] Basophil percentageOrdered B y: Yasmine Martinez on 12-15-2024 Basophils/100 WBC (Bld) 0.6 % 0-1 [facility] Bilirubin, totalOrdered By: Yasmine Martinez on 12-15-2024 Bilirubin [Mass/Vol] 0.40 mg/dL 0.00-1.30 [facility] CBC W/Diff, Automatedon Absolute Lymph 0.80 X10 3/uL Low 0.83-4.[address] [facility] Comment on above: Performed By: #### L 3100.5400, L3100.5700, L3100.5800, L3100.7950, L3100.5440, L100.0100, L509.1000, L501.6710, L500.4050, L500.4100, L501.9520 #### [facility] [address] [place], [place], [id number] Absolute Neut 2.0 X10 3/uL Normal 2.0-7.[address] [facility] Comment on above: Performed By: #### L 3100.5400, L3100.5700, L3100.5800, L3100.7950, L3100.5440, L100.0100, L509.1000, L501.6710, L500.4050, L500.4100, L501.9520 #### [facility] [address] [place], [address] (535) Basophils/100 WBC (Bld) 0.6 % Normal 0-1 [facility] Comment on above: Performed By: #### L 3100.5400, L3100.5700, L3100.5800, L3100.7950, L3100.5440, L100.0100, L509.1000, L501.6710, L500.4050, L500.4100, L501.9520 #### [facility] [address] [place], [address] (636) Eosinophils/100 WBC (Bld) 0.6 % Normal 0-[address] [facility] Comment on above: Performed By: #### L 3100.5400, L3100.5700, L3100.5800, L3100.7950, L3100.5440, L100.0100, L509.1000, L501.6710, L500.4050, L500.4100, L501.9520 #### [facility] [address] [place], [address] Erythrocyte distribution width (RBC) [Ratio] 14.5 % Normal 11.6-14.[address] [facility] Comment on above: Performed By: #### L 3100.5400, L3100.5700, L3100.5800, L3100.7950, L3100.5440, L100.0100, L509.1000, L501.6710, L500.4050, L500.4100, L501.9520 #### [facility] [address] [place], [address] Hematocrit (Bld) [Volume fraction] 40.0 % Normal 37-[address] [facility] Comment on above: Performed By: #### L 3100.5400, L3100.5700, L3100.5800, L3100.7950, L3100.5440, L100.0100, L509.1000, L501.6710, L500.4050, L500.4100, L501.9520 #### [facility] [address] [place], [address] Hemoglobin (Bld) [Mass/Vol] 13.2 g/dL Normal 12.0-15. [address] [facility] Comment on above: Performed By: #### L 3100.5400, L3100.5700, L3100.5800, L3100.7950, L3100.5440, L100.0100, L509.1000, L501.6710, L500.4050, L500.4100, L501.9520 #### [facility] [address] [facility] [place], [address] IG% 0.300 Normal 0.0-0.[address] [facility] Comment on above: Result Comment: IG% - Immature Granulocytes (promyelocytes, myelocytes and metamyelocytes) > 1% indicates that a LEFT SHIFT is Present. Performed By: #### L 3100.5400, L3100.5700, L3100.5800, L3100.7950, L3100.5440, L100.0100, L509.1000, L501.6710, L500.4050, L500.4100, L501.9520 #### [facility] [address] [place], [address] Lymphocytes/100 WBC (Bld) 24.9 % Normal 19-[address] [facility] Comment on above: Performed By: #### L 3100.5400, L3100.5700, L3100.5800, L3100.7950, L3100.5440, L100.0100, L509.1000, L501.6710, L500.4050, L500.4100, L501.9520 #### [facility] [address] [place], [address] ( MCH (RBC) [Entitic mass] 29.5 pg Normal 27.0-32.[address] [facility] Comment on above: Performed By: #### L 3100.5400, L3100.5700, L3100.5800, L3100.7950, L3100.5440, L100.0100, L509.1000, L501.6710, L500.4050, L500.4100, L501.9520 #### [facility] [address] [place], [address] ( MCHC (RBC) [Mass/Vol] 33.0 g/dL Normal 32-36 [facility] Comment on above: Performed By: #### L 3100.5400, L3100.5700, L3100.5800, L3100.7950, L3100.5440, L100.0100, L509.1000, L501.6710, L500.4050, L500.4100, L501.9520 #### [facility] [address] [place], [address] ( MCV (RBC) [Entitic vol] 89.3 fL Normal 81-99 [facility] Comment on above: Performed By: #### L 3100.5400, L3100.5700, L3100.5800, L3100.7950, L3100.5440, L100.0100, L509.1000, L501.6710, L500.4050, L500.4100, L501.9520 #### [facility] [address] [place], [address] ( Monocytes/100 WBC (Bld) 10.9 % High 0-10 [facility] Comment on above: Performed By: #### L 3100.5400, L3100.5700, L3100.5800, L3100.7950, L3100.5440, L100.0100, L509.1000, L501.6710, L500.4050, L500.4100, L501.9520 #### [facility] [address] [place], [address] Neutrophils/100 WBC (Bld) 62.7 % Normal 47-[address] [facility] Comment on above: Performed By: #### L 3100.5400, L3100.5700, L3100.5800, L3100.7950, L3100.5440, L100.0100, L509.1000, L501.6710, L500.4050, L500.4100, L501.9520 #### [facility] [address] [facility] [place], [address] (479 Nucleated RBC (Bld) [#/Vol] 0 10*3/uL Normal 0-[address] [facility] Comment on above: Performed By: #### L 3100.5400, L3100.5700, L3100.5800, L3100.7950, L3100.5440, L100.0100, L509.1000, L501.6710, L500.4050, L500.4100, L501.9520 #### [facility] [address] [place], [address] Platelet mean volume (Bld) [Entitic vol] 12.4 fL High 6.2-12.[address] [facility] Comment on above: Performed By: #### L 3100.5400, L3100.5700, L3100.5800, L3100.7950, L3100.5440, L100.0100, L509.1000, L501.6710, L500.4050, L500.4100, L501.9520 #### [facility] [address] [facility] [place], [address] Platelets (Bld) [#/Vol] 180 10*3/uL Normal 150-[address] [facility] Comment on above: Performed By: #### L 3100.5400, L3100.5700, L3100.5800, L3100.7950, L3100.5440, L100.0100, L509.1000, L501.6710, L500.4050, L500.4100, L501.9520 #### [facility] [address] [place], [place], [id number] (243) RBC (Bld) [#/Vol] 4.48 10*6/uL Normal 4.2-5.4 [facility] Comment on above: Performed By: #### L 3100.5400, L3100.5700, L3100.5800, L3100.7950, L3100.5440, L100.0100, L509.1000, L501.6710, L500.4050, L500.4100, L501.9520 #### [facility] [address] [place], [place], [id number] RDW SD 46.8 fl High 35.1-43.[address] [facility] Comment on above: Performed By: #### L 3100.5400, L3100.5700, L3100.5800, L3100.7950, L3100.5440, L100.0100, L509.1000, L501.6710, L500.4050, L500.4100, L501.9520 #### [facility] [address] [place], [place], [id number] WBC (Bld) [#/Vol] 3.2 10*3/uL Low 4.4-11.0 [facility] Comment on above: Performed By: #### L 3100.5400, L3100.5700, L3100.5800, L3100.7950, L3100.5440, L100.0100, L509.1000, L501.6710, L500.4050, L500.4100, L501.9520 #### [facility] [address] [place], [address] CRPon 12-15-2024 C-REACTIVE PROT < 3.00 Normal 0.0-3.[address] [facility] Comment on above: Performed By: #### L 3100.5400, L3100.5700, L3100.5800, L3100.7950, L3100.5440, L100.0100, L509.1000, L501.6710, L500.4050, L500.4100, L501.9520 #### [facility] [place], [place], [id number] CRP [Mass/Vol]Ordered By: Alden Martinez on 12-15-2024 C-Reactive Protein Extended Range < 3.00 mg/L 0.0-3.[address] [facility] Calculated very low density lipoprotein (VLDL) cholesterol measurementOrdered By: Yasmine Martinez on 12-15-2024 VLDL Cholesterol 11 mg/dL 5-[address] [facility] Carbon dioxide, total [Moles /volume] in Central venous bloodOrdered By: Yasmine Martinez on 12-15-2024 CO2 [Moles/Vol] 21.2 mmol/L 21.0-32.[address] [facility] Centromere B antibody assayO rdered By: Yasmine Martinez on 12-15-2024 Centromere B Antibody <0.2 AI 0.0-0.9 [facility] Comment on above: Previous reported re sult: TNP AIEdited by: LITA on 12/18/24:1806 AMENDED REPORT 12/18/241806 ANTI-CENT B previously reported as: Test not performed Centrosomal nuclear Ab melanie saravia IF Ql (S)Ordered By: Yasmine Martinez on 12-15-2024 Anti-Nuclear Ab Centromere Pattern TNP [facility] Comment on above: Test not performed Chloride assayOrdered By: Alden Martinez on 12-15-2024 Chloride [Moles/Vol] 107 mmol/L 98-108 [facility] Chromatin antibody assayOrde red By: Yasmine Martinez on 12-15-2024 Antichromatin Antibodies <0.2 AI 0.0-0.[address] [facility] Comment on above: Previous reported re sult: TNP AIEdited by: LITA on 12/18/24:1807 AMENDED REPORT 12/18/24 1807 ANTICHROMATIN previously reported as: Test not performed Complement C3 assayOrdered B y: Yasmnie Martinez on 12-15-2024 Complement C3 70 mg/dL Low 82-[address] [facility] Comment on above: Performed at: - [address] [id number] Director: Zack Hendricks PhD, Phone: [phone] Complement C4 [Mass/Vol]Orde red By: Yasmine Martienz on 12-15-2024 Complement C4 9 mg/dL Low 12-[address] [facility] Comprehensive Metabolic Prof ilon 12-15-2024 Albumin [Mass/Vol] 4.6 g/dL Normal 3.5-5.0 [facility] Comment on above: Performed By: #### L 3100.5400, L3100.5700, L3100.5800, L3100.7950, L3100.5440, L100.0100, L509.1000, L501.6710, L500.4050, L500.4100, L501.9520 #### [facility] [address] [place], [place], [id number] Albumin/Globulin [Mass ratio] 1.2 {ratio} Normal 0.9-2.[address] [facility] Comment on above: Performed By: #### L 3100.5400, L3100.5700, L3100.5800, L3100.7950, L3100.5440, L100.0100, L509.1000, L501.6710, L500.4050, L500.4100, L501.9520 #### [facility] [address] [place], [place], [id number] ALK PHOS 69 U/L Normal 35-[address] [facility] Comment on above: Performed By: #### L 3100.5400, L3100.5700, L3100.5800, L3100.7950, L3100.5440, L100.0100, L509.1000, L501.6710, L500.4050, L500.4100, L501.9520 #### [facility] [address] [place], [address] ALT [Catalytic activity/Vol] 33 U/L Normal <=[address] [facility] Comment on above: Performed By: #### L 3100.5400, L3100.5700, L3100.5800, L3100.7950, L3100.5440, L100.0100, L509.1000, L501.6710, L500.4050, L500.4100, L501.9520 #### [facility] [address] [place], [place], [id number] AST [Catalytic activity/Vol] 31 U/L Normal <=[address] [facility] Comment on above: Performed By: #### L 3100.5400, L3100.5700, L3100.5800, L3100.7950, L3100.5440, L100.0100, L509.1000, L501.6710, L500.4050, L500.4100, L501.9520 #### [facility] [address] [place], [place], [id number] Bilirubin [Mass/Vol] 0.40 mg/dL Normal 0.00-1.30 [facility] Comment on above: Performed By: #### L 3100.5400, L3100.5700, L3100.5800, L3100.7950, L3100.5440, L100.0100, L509.1000, L501.6710, L500.4050, L500.4100, L501.9520 #### [facility] [address] [place], [place], [id number] BUN/CRE 18.9 RATIO Normal 10-[address] [facility] Comment on above: Performed By: #### L 3100.5400, L3100.5700, L3100.5800, L3100.7950, L3100.5440, L100.0100, L509.1000, L501.6710, L500.4050, L500.4100, L501.9520 #### [facility] [address] [place], [address] Calcium [Mass/Vol] 9.3 mg/dL Normal 7.6-11.0 [facility] Comment on above: Performed By: #### L 3100.5400, L3100.5700, L3100.5800, L3100.7950, L3100.5440, L100.0100, L509.1000, L501.6710, L500.4050, L500.4100, L501.9520 #### [facility] [address] [place], [place], [id number] (669) Chloride [Moles/Vol] 107 mmol/L Normal 98-108 [facility] Comment on above: Performed By: #### L 3100.5400, L3100.5700, L3100.5800, L3100.7950, L3100.5440, L100.0100, L509.1000, L501.6710, L500.4050, L500.4100, L501.9520 #### [facility] [address] [place], [address] CO2 [Moles/Vol] 21.2 mmol/L Normal 21.0-32.[address] [facility] Comment on above: Performed By: #### L 3100.5400, L3100.5700, L3100.5800, L3100.7950, L3100.5440, L100.0100, L509.1000, L501.6710, L500.4050, L500.4100, L501.9520 #### [facility] [address] [place], [place], [id number] (619) Creatinine [Mass/Vol] 0.63 mg/dL Low 0.70-1.20 [facility] Comment on above: Performed By: #### L 3100.5400, L3100.5700, L3100.5800, L3100.7950, L3100.5440, L100.0100, L509.1000, L501.6710, L500.4050, L500.4100, L501.9520 #### [facility] [address] [place], [address] GAP 12 Normal 5-[address] [facility] Comment on above: Performed By: #### L 3100.5400, L3100.5700, L3100.5800, L3100.7950, L3100.5440, L100.0100, L509.1000, L501.6710, L500.4050, L500.4100, L501.9520 #### [facility] [address], [address] GFR/1.73 sq M.predicted among non-blacks MDRD (S/P/Bld) [Vol rate/Area] 111 mL/min/{1.73_m2} Normal >60 [facility] Comment on above: Result Comment: mL/m in/1.73m2 CKD-EPI Creatinine Equation (2020) Performed By: #### L 3100.5400, L3100.5700, L3100.5800, L3100.7950, L3100.5440, L100.0100, L509.1000, L501.6710, L500.4050, L500.4100, L501.9520 #### [facility] [address] [place], [address] Globulin (S) [Mass/Vol] 3.9 g/dL Normal 2.2-4.2 [facility] Comment on above: Performed By: #### L 3100.5400, L3100.5700, L3100.5800, L3100.7950, L3100.5440, L100.0100, L509.1000, L501.6710, L500.4050, L500.4100, L501.9520 #### [facility] [address] [place], [address] Glucose [Mass/Vol] 86 mg/dL Normal 70-99 [facility] Comment on above: Performed By: #### L 3100.5400, L3100.5700, L3100.5800, L3100.7950, L3100.5440, L100.0100, L509.1000, L501.6710, L500.4050, L500.4100, L501.9520 #### [facility] [address] [place], [place], [id number] (921) Potassium [Moles/Vol] 4.1 mmol/L Normal 3.3-5.1 [facility] Comment on above: Performed By: #### L 3100.5400, L3100.5700, L3100.5800, L3100.7950, L3100.5440, L100.0100, L509.1000, L501.6710, L500.4050, L500.4100, L501.9520 #### [facility] [address] [place], [place], [address] Sodium [Moles/Vol] 140 mmol/L Normal 133-145 [facility] Comment on above: Performed By: #### L 3100.5400, L3100.5700, L3100.5800, L3100.7950, L3100.5440, L100.0100, L509.1000, L501.6710, L500.4050, L500.4100, L501.9520 #### [facility] [address] [place], [address] T PROT 8.5 g/dL High 5.9-8.[address] [facility] Comment on above: Performed By: #### L 3100.5400, L3100.5700, L3100.5800, L3100.7950, L3100.5440, L100.0100, L509.1000, L501.6710, L500.4050, L500.4100, L501.9520 #### [facility] [address] [place], [address] Urea nitrogen [Mass/Vol] 12 mg/dL Normal 4-[address] [facility] Comment on above: Performed By: #### L 3100.5400, L3100.5700, L3100.5800, L3100.7950, L3100.5440, L100.0100, L509.1000, L501.6710, L500.4050, L500.4100, L501.9520 #### [facility] [address] [place], [address] DNA double strand Ab Qn (S)O rdered By: Yasmine Martinez on 12-15-2024 Anti-Double Strand DNA Antibody 1 IU/mL 0-[address] [facility] Comment on above: Negative <5 Equivoca l 5 - 9 Positive >9Previous reported result: TNP IU/mLEdited by: LITA on 12/18/24:1806 AMENDED REPORT 12/18/241806 dsDNA AB previously reported as: Test not performed Eosinophil percentageOrdered By: Yasmine Martinez on 12-15-2024 Eosinophils/100 WBC (Bld) 0.6 % 0-[address] [facility] Erythrocyte distribution wid th (RBC) [Ratio]Ordered By: Yasmine Martinez on 12-15-2024 Erythrocyte distribution width (RBC) [Entitic vol] 46.8 fL High 35.1-43.9 [facility] Erythrocyte distribution wid th ratioOrdered By: Yasmine Martinez on 12-15-2024 Erythrocyte distribution width (RBC) [Ratio] 14.5 % 11.6-14.[address] [facility] GFR/1.73 sq M.predicted isaac g non-blacks MDRD (S/P/Bld) [Vol rate/Area]Ordered By: Yasmine Martinez on 12-15-2024 Estimated GFR (MDRD) Non-Af Amer [address] >[address] [facility] Comment on above: mL/min/1.73m2 CKD-EP I Creatinine Equation (2020) Hematocrit Auto (Bld) [Volum e fraction]Ordered By: Yasmine Martinez on 12-15-2024 Hematocrit (Bld) [Volume fraction] 40.0 % 37-[address] [facility] Hemoglobin measurementOrdere d By: Yasmine Martinez on 12-15-2024 Hemoglobin (Bld) [Mass/Vol] 13.2 g/dL 12.0-15. [address] [facility] Immature granulocytes/100 WB C Auto (Bld)Ordered By: Yasmine Martinez on 12-15-2024 Immature granulocytes/100 WBC (Bld) 0.300 % 0.0-0.[address] [facility] Comment on above: IG% - Immature Granu locytes (promyelocytes, myelocytes and metamyelocytes) > 1% indicates that a LEFT SHIFT is Present. Latosha-1 antibody assayOrdered B y: Yasmine Martinez on 12-15-2024 LATOSHA-1 Antibody <0.2 AI 0.0-0.[address] [facility] Comment on above: Previous reported re sult: TNP AIEdited by: LITA on 12/18/24:1806 AMENDED REPORT 12/18/241806 ANTI-LATOSHA previously reported as: Test not performed LDL calc ser/plasOrdered By: Yasmine Martinez on 12-15-2024 LDL Cholesterol, Calculated 106 mg/dL [facility] Comment on above: Dqgdcmbyht=774-072 m g/dL & Higher Tzds=752 mg/dL or greater Laboratory - Chemistry and C hemistry - challengeOrdered By: Yasmine Martinez on 12-15-2024 AST [Catalytic activity/Vol] 31 U/L <[address] [facility] Lipid Profileon 12-15-2024 CHOL:HDL 2.[address] [facility] Comment on above: Performed By: #### L 3100.5400, L3100.5700, L3100.5800, L3100.7950, L3100.5440, L100.0100, L509.1000, L501.6710, L500.4050, L500.4100, L501.9520 #### [facility] [address] [place], [place], [id number] Cholesterol [Mass/Vol] 190 mg/dL Normal <=200 [facility] Comment on above: Result Comment: Chol esterol level, Desirable <200 mg/dL Borderline high cholesterol 200-239 mg/dL High cholesterol >=240 mg/dL Recommendations of the NCEP Adult Treatment Panel for the following risk-cutoff thresholds for the [place] population. Performed By: #### L 3100.5400, L3100.5700, L3100.5800, L3100.7950, L3100.5440, L100.0100, L509.1000, L501.6710, L500.4050, L500.4100, L501.9520 #### [facility] [address] [place], [address] Cholesterol in HDL [Mass/Vol] 73 mg/dL Normal [facility] Comment on above: Result Comment: Kaity onal Cholesterol Education Program (NCEP) guidelines: <40 mg/dL: Low HDL-cholesterol (major risk factor for CHD) >= 60 mg/dL: High HDL-cholesterol (negative risk factor for CHD) HDL-cholesterol is affected by a number of factors, e.g. smoking, exercise, hormones, sex and age. Performed By: #### L 3100.5400, L3100.5700, L3100.5800, L3100.7950, L3100.5440, L100.0100, L509.1000, L501.6710, L500.4050, L500.4100, L501.9520 #### [facility] [address] [place], [address] Cholesterol in LDL [Mass/Vol] 106 mg/dL Normal [facility] Comment on above: Result Comment: Bord stsuzn=775-288 mg/dL Higher Fhhi=628 mg/dL or greater Performed By: #### L 3100.5400, L3100.5700, L3100.5800, L3100.7950, L3100.5440, L100.0100, L509.1000, L501.6710, L500.4050, L500.4100, L501.9520 #### [facility] [address] [place], [address] Cholesterol in VLDL [Mass/Vol] 11 mg/dL Normal 5-[address] [facility] Comment on above: Performed By: #### L 3100.5400, L3100.5700, L3100.5800, L3100.7950, L3100.5440, L100.0100, L509.1000, L501.6710, L500.4050, L500.4100, L501.9520 #### [facility] [address] [facility] [place], [address] Triglyceride [Mass/Vol] 57 mg/dL Normal [facility] Comment on above: Result Comment: The drugs N-Acetylcysteine and Metamizole may falsely depress this assay. Normal range: <150 mg/dL Borderline High: 150-199 mg/dL High: 200-499 mg/dL Very High: >500 mg/dL Performed By: #### L 3100.5400, L3100.5700, L3100.5800, L3100.7950, L3100.5440, L100.0100, L509.1000, L501.6710, L500.4050, L500.4100, L501.9520 #### [facility] [address] [place], [place], [id number] Lymphocytes Auto (Unsp spec) [#/Vol]Ordered By: Yasmine Martinez on 12-15-2024 Lymphocytes (Bld) [#/Vol] 0.80 10*3/uL Low 0.83-4.[address] [facility] Lymphocytes/100 WBC Auto (Un sp spec)Ordered By: Yasmine Martinez on 12-15-2024 Lymphocytes/100 WBC (Bld) 24.9 % 19-[address] [facility] MCV (mean corpuscular volume ) determinationOrdered By: Yasmine Martinez on 12-15-2024 MCV (RBC) [Entitic vol] 89.3 fL 81-[address] [facility] Mean corpuscular hemoglobin (MCH) determinationOrdered By: Yasmine Martinez on 12-15-2024 MCH (RBC) [Entitic mass] 29.5 pg 27.0-32.[address] [facility] Mean corpuscular hemoglobin concentration (MCHC) determinationOrdered By: Yasmine Martinez on 12-15-2024 MCHC (RBC) [Mass/Vol] 33.0 g/dL 32-36 [facility] Mean platelet volume determi nationOrdered By: Yasmine Martinez on 12-15-2024 Platelet mean volume (Bld) [Entitic vol] 12.4 fL High 6.2-12.[address] [facility] Midbody Ab IF (S) [Titer]Ord ered By: Yasmine Martinez on 12-15-2024 Anti-Nuclear Ab Midbody Pattern [facility] Comment on above: Test not performed Mitotic spindle apparatus Ab [Titer]Ordered By: Yasmine Martinez on 12-15-2024 KAMRYN Spindle Apparatus Pattern [facility] Comment on above: Test not performed Monocyte percentageOrdered B y: Yasmine Martinez on 12-15-2024 Monocytes/100 WBC (Bld) 10.9 % High 0-10 [facility] Multiple nuclear dots nuclea r IgG pattern IF (S) [Titer]Ordered By: Yasmine Martinez on 12-15-2024 Anti-Nuclear Ab Nuclear Dot Pattern [facility] Comment on above: Test not performed Neutrophil percentageOrdered By: Yasmine Martinez on 12-15-2024 Neutrophils/100 WBC (Bld) 62.7 % 47-[address] [facility] No Panel InformationOrdered By: Yasmine Martinez on 12-15-2024 Anti-Nuclear Antibody Comment [address] [facility] Comment on above: Pattern Potential Di sease Association Homogeneous Systemic Lupus Erythematosus, Drug Induced Systemic Lupus Erythematosus, Chronic Autoimmune hepatitis, Juvenile Idiopathic Arthritis Speckled Sjogren Syndrome, Systemic Lupus Erythematosus, Subacute Cutaneous Lupus, Lupus, Congenital Heart Block, Mixed Connective Tissue Disease, Scleroderma-diffuse, Scleroderma-Autoimmune Myositis Overlap Syndrome, Systemic Lupus Rukfqltzzscno-Jippovoaxvq-Aiigogtkdv Myositis Overlap Syndrome, Systemic Autoimmune Rheumatic Disease, Undifferentiated Connective Tissue Disease Nucleolar Systemic Sclerosis, Scleroderma-Autoimmune Myositis Overlap Syndrome, Sjogren Syndrome, Raynaud phenomenon, Pulmonary Arterial Hypertension, Systemic Autoimmune Rheumatic Disease, Cancer Centromere Scleroderma-CREST, Limited Cutaneous SSc, Raynaud's Phenomenon, Primary Biliary Cholangitis Nuclear Dot Primary Biliary Cholangitis Nuclear Primary Biliary Cholangitis, AutoimmuneMembrane Hepatitis/Liver disease, Systemic Autoimmune Rheumatic Disease, Autoimmune Cytopenias, Linear Scleroderma, Antiphospholipid Syndrome Performed at: [facility] [id number] [place], [place] [id number] Director: Zack Hendricks PhD, Phone: [phone] Nuclear membrane pores nucle ar Ab pattern IF Ql (S)Ordered By: Yasmine Martinez on 12-15-2024 KAMRYN Nuclear Membrane Pattern TNP [facility] Comment on above: Test not performed Nucleated red blood cell per centageOrdered By: Yasmine Martinez on 12-15-2024 Nucleated RBC/100 WBC (Bld) [Ratio] 0 % 0-[address] [facility] Nucleolar nuclear Ab pattern (S) [Titer]Ordered By: Yasmine Martinez on 12-15-2024 Anti-Nuclear Ab Nucleolar Pattern TNP [facility] Comment on above: Test not performed PCNA extractable nuclear Ab IF (S) [Titer]Ordered By: Yasmine Martinez on 12-15-2024 Anti-Nuclear Ab PCNA Pattern TNP [facility] Comment on above: Test not performed PTH intactOrdered By: Yasmine nick on 12-15-2024 Parathyroid Hormone (Intact) 30 pg/mL [facility] PTHINon 12-15-2024 PTH 30 pg/mL Normal [facility] Comment on above: Performed By: #### L 3100.5400, L3100.5700, L3100.5800, L3100.7950, L3100.5440, L100.0100, L509.1000, L501.6710, L500.4050, L500.4100, L501.9520 #### [facility] [address] [place], [place], [address] Platelet countOrdered By: Alden Martinez on 12-15-2024 Platelets (Bld) [#/Vol] 180 10*3/uL 150-[address] [facility] Potassium (Unsp spec) [Mass/ Vol]Ordered By: Yasmine Martinez on 12-15-2024 Potassium [Moles/Vol] 4.1 mmol/L 3.3-5.1 [facility] Prolactin [Mass/Vol]Ordered By: Yasmine Martinez on 12-15-2024 Prolactin 10.8 ng/mL 4.8-33.[address] [facility] RBC Auto (Bld) [#/Vol]Ordere d By: Yasmine Martinez on 12-15-2024 RBC (Bld) [#/Vol] 4.48 10*6/uL 4.2-5.4 [facility] ATTORNEY LAWYER abOrdered By: Yasmine Martinez on 12-15-2024 ATTORNEY LAWYER Antibody 0.2 AI 0.0-0.[address] [facility] Comment on above: Previous reported re sult: TNP AIEdited by: LITA on 12/18/24:1806 AMENDED REPORT 12/18/241806 ATTORNEY LAWYER Ab previously reported as: Test not performed Rim nuclear Ab pattern (S) [ Titer]Ordered By: Yasmine Martinez on 12-15-2024 Anti-Nuclear Ab Homogeneous Pattern TNP [facility] Comment on above: Test not performed SCL-70 extractable nuclear A b Qn (S)Ordered By: Yasmine Martinez on 12-15-2024 Scl-70 (Scleroderma) Antibody <0.2 AI 0.0-0.[address] [facility] Comment on above: Previous reported re sult: TNP AIEdited by: LITA on 12/18/24:1807 AMENDED REPORT 12/18/241806 ANTISCLER previously reported as: Test not performed SS-A IgG antibody assayOrder ed By: Yasmine Martinez on 12-15-2024 SS-A/Ro IgG Antibody > 8.0 AI High 0.0-0.9 [facility] Comment on above: Previous reported re sult: TNP AIEdited by: LITA on 12/18/24:1807 AMENDED REPORT 12/18/241806 Anti-SS-A previously reported as: Test not performed SS-B IgG antibody assayOrder ed By: Yasmine Martinez on 12-15-2024 SS-B/La IgG Antibody < 0.2 AI 0.0-0.9 [facility] Comment on above: Previous reported re sult: TNP AIEdited by: LITA on 12/18/24:1807 AMENDED REPORT 12/18/241806 Anti-SS-B previously reported as: Test not performed Screening total cholesterol/ high density lipoprotein (HDL) cholesterol ratioOrdered By: Yasmine Martinez on 12-15-2024 Cholesterol.total/Cholestero l in HDL [Mass ratio] 2.60 {ratio} [facility] Serum centriole antibody tit er by immunofluorescenceOrdered By: Yasmine Martinez on 12-15-2024 Anti-Nuclear Ab Centriole Pattern TNP [facility] Comment on above: Test not performed Serum creatinine measurement (mass/volume)Ordered By: Yasmine Martinez on 12-15-2024 Creatinine [Mass/Vol] 0.63 mg/dL Low 0.70-1.20 [facility] Serum globulin measurementOr dered By: Yasmine Martinez on 12-15-2024 Globulin (S) [Mass/Vol] 3.9 g/dL 2.2-4.2 [facility] Serum glucose measurement (m ass/volume)Ordered By: Yasmine Martinez on 12-15-2024 Glucose [Mass/Vol] 86 mg/dL 70-99 [facility] Serum or plasma alanine castro otransferase (ALT) measurementOrdered By: Yasmine Martinez on 12-15-2024 ALT [Catalytic activity/Vol] 33 U/L <[address] [facility] Serum or plasma albumin crispin urement (mass/volume)Ordered By: Yasmine Martinez on 12-15-2024 Albumin [Mass/Vol] 4.6 g/dL 3.5-5.0 [facility] Serum or plasma albumin/glob ulin mass ratioOrdered By: Yasmine Martinez on 12-15-2024 Albumin/Globulin [Mass ratio] 1.2 {ratio} 0.9-2.[address] [facility] Serum or plasma alkaline ally sphatase measurementOrdered By: Yasmine Martinze on 12-15-2024 ALP [Catalytic activity/Vol] 69 U/L 35-[address] [facility] Serum or plasma calcium crispin urement (mass/volume)Ordered By: Yasmine Martinez on 12-15-2024 Calcium [Mass/Vol] 9.3 mg/dL 7.6-11.0 [facility] Serum or plasma cholesterol in HDL measurement (mass/volume)Ordered By: Yasmine Martinez on 12-15-2024 Cholesterol in HDL [Mass/Vol] 73 mg/dL >[address] [facility] Comment on above: National Cholesterol Education Program (NCEP) guidelines:<40 mg/dL: Low HDL-cholesterol (major risk factor for CHD)>= 60 mg/dL: High HDL-cholesterol (negative risk factor for CHD)HDL-cholesterol is affected by a number of factors, e.g. smoking, exercise, hormones, sex and age. Serum or plasma cholesterol measurement (mass/volume)Ordered By: Yasmine Martinez on 12-15-2024 Cholesterol [Mass/Vol] 190 mg/dL <201 [facility] Comment on above: Cholesterol level, D esirable <200 mg/dLBorderline high cholesterol 200-239 mg/dLHigh cholesterol >=240 mg/dLRecommendations of the NCEP Adult Treatment Panel for the following risk-cutoff thresholds for the [place] population. Serum or plasma urea nitroge n measurement (mass/volume)Ordered By: Yasmine Martinez on 12-15-2024 Urea nitrogen [Mass/Vol] 12 mg/dL 4-[address] [facility] Juan antibody assayOrdered By: Yasmine Martinez on 12-15-2024 SM Antibody <0.2 AI 0.0-0.[address] [facility] Comment on above: Previous reported re sult: TNP AIEdited by: LITA on 12/18/24:180 AMENDED REPORT 12/18/241806 JUAN Ab previously reported as: Test not performed Sodium levelOrdered By: Yasmine Martinez on 12-15-2024 Sodium [Moles/Vol] 140 mmol/L 133-145 [facility] Speckled nuclear Ab pattern (S) [Titer]Ordered By: Yasmine Martinez on 12-15-2024 Anti-Nuclear Ab Atyp Speckled Bibi >1:[address] [facility] Comment on above: ICAP nomenclature: A C-2,4,5,29 TSH DL <= 0.005 mIU/L QnOrde red By: Yasmine Martinez on 12-15-2024 Thyroid Stimulating Hormone (TSH) 1.460 uIU/mL 0.300-4.[address] [facility] Thyroid Stim Hormone (TSH)on 12-15-2024 TSH 1.460 uIU/mL Normal 0.300-4.[address] [facility] Comment on above: Performed By: #### L 3100.5400, L3100.5700, L3100.5800, L3100.7950, L3100.5440, L100.0100, L509.1000, L501.6710, L500.4050, L500.4100, L501.9520 #### [facility] [place], [address] Total proteinOrdered By: Huma Martinez on 12-15-2024 Protein [Mass/Vol] 8.5 g/dL High 5.9-8.4 [facility] Triglycerides measurementOrd ered By: Yasmine Martinez on 12-15-2024 Triglyceride [Mass/Vol] 57 mg/dL <199 [facility] Comment on above: The drugs N-Acetylcy steine and Metamizole may falsely depress this assay. Normal range: <150 mg/dLBorderline High: 150-199 mg/dLHigh: 200-499 mg/dLVery High: >500 mg/dL White blood cell (WBC) count Ordered By: Yasmine Martinez on 12-15-2024 WBC (Bld) [#/Vol] 3.2 10*3/uL Low 4.4-11.0 [facility] CNTHERAPYon 12-05-2024 CNTHERAPY OT/PT/Speech Visit (PTWS) DEE KINNEY ([id number]) 1980 F Date Time Provider Department 12/05/24 10:00 AM JAIME GEORGE PTTOMMY Date Time Provider Department Center 12/05/2024 10:00 AM [id number], SEAN PTWS [facility] Reason for Visit: PT Eval [747] Primary Visit Diagnosis:Primary localized osteoarthritis of right knee [M17.11] Allergies As of Date: 12/05/2024 (Not on File) Date Reviewed: Never Reviewed Green Building Engineer: Therapy (PT/OT/Speech/Resp) ID: [id number] 12/05/2024 10:34 AM Author: JAIME GEORGE Signed by JAIME GEORGE PT on 12/05/2024 at 10:34 AM Document text: Program_ID:[id number] Access Code: [email or web address] URL: [email or web address] Date: 12-05-2024 Prepared By: Jaime George Program Notes Exercises - Sidelying Hip Abduction - 1 x daily - 7 x weekly - 3 sets - 10 reps - Sidelying Bent Knee Hip Flexion - 1 x daily - 7 x weekly - 3 sets - 10 reps - Sidelying Hip Circles - 1 x daily - 7 x weekly - 3 sets - 10 reps - Clamshell - 1 x daily - 7 x weekly - 3 sets - 10 reps - Supine Hip Extension on Bench - 1 x daily - 7 x weekly - 3 sets - 10 reps - Supine Active Straight Leg Raise - 1 x daily - 7 x weekly - 3 sets - 20 reps -------- Normal [facility] THERAPY NTon 12-05-2024 THERAPY NT HNO ID: [id number] Author: JAIME GEORGE PT Service: ? Author Type: Physical Therapist Type: Therapy (PT/OT/Speech/Resp) Filed: 12/05/2024 10:34 Note Text: Program_ID:[id number] Access Code: [email or web address] URL: [email or web address] Date: 12-05-2024 Prepared By: Jaime George Program Notes Exercises - Sidelying Hip Abduction - 1 x daily - 7 x weekly - 3 sets - 10 reps - Sidelying Bent Knee Hip Flexion - 1 x daily - 7 x weekly - 3 sets - 10 reps - Sidelying Hip Circles - 1 x daily - 7 x weekly - 3 sets - 10 reps - Clamshell - 1 x daily - 7 x weekly - 3 sets - 10 reps - Supine Hip Extension on Bench - 1 x daily - 7 x weekly - 3 sets - 10 reps - Supine Active Straight Leg Raise - 1 x daily - 7 x weekly - 3 sets - 20 reps Normal [facility] Vital Signs Date Time Vital Sign Value Performing Clinician Alexandria saenz 03-26-2025 10:15-0400 Diastolic blood pressure 72 mm[Hg] Lore Smith MD Work Phone: [facility] 03-26-2025 10:15-0400 Heart rate 64 /min Lore Smith MD Work Phone: [facility] 03-26-2025 10:15-0400 Respiratory rate 13 /min Lore Smith MD Work Phone: 6(608)739-468344 [place] [address] 03-26-2025 10:15-0400 SaO2% (BldA) [Mass fraction] 96 % Lore Smith MD Work Phone: 2(344)944-986944 [place] [address] 03-26-2025 10:15-0400 Systolic blood pressure 125 mm[Hg] Lore Smith MD Work Phone: 7(837)513-053844 [place] [address] 03-26-2025 08:50-0400 Body temperature 97.39 [degF] Lore Smith MD Work Phone: 7(930)745-471644 [place] [address] 03-26-2025 06:34-0400 Body height 170.2 cm Lore Smith MD Work Phone: [phone](025)143-458144 [place] [address] 03-26-2025 06:34-0400 Body mass index (BMI) [Ratio] 19.42 kg/m2 Lore Smith MD Work Phone: 2(123)038-848344 [place] [address] 03-26-2025 06:34-0400 Body weight 56.25 kg Lore Smith MD Work Phone: 0(601)513-916344 [place] [address] 02-16-2025 14:54-0400 Body height 170.2 cm Lore Smith MD Work Phone: 2(117)[phone] [place] [address] 02-16-2025 14:54-0400 Body mass index (BMI) [Ratio] 19.15 kg/m2 Lore Smith MD Work Phone: 4(974)102-193244 [place] [address] 02-16-2025 14:54-0400 Body weight 55.48 kg Lore Smith MD Work Phone: 7(501)577-468744 [place] [address] 2025 14:06-0400 Body mass index (BMI) [Ratio] 19.83 kg/m2 Tarik CANNON Work Phone: [facility] 2025 14:06-0400 Body temperature 98.6 [degF] Tarik Ca APRN-SQL MANAGER Work Phone: [facility] 2025 14:06-0400 Body weight 57.42 kg Tarik Ca APRN-SQL MANAGER Work Phone: [facility] 2025 14:06-0400 Diastolic blood pressure 95 mm[Hg] Tarik Ca INTERNATIONAL OPERATIONS MANAGER-SQL MANAGER Work Phone: [facility] 2025 14:06-0400 Heart rate 80 /min Tarik Ca INTERNATIONAL OPERATIONS MANAGER-SQL MANAGER Work Phone: [facility] 2025 14:06-0400 Respiratory rate 12 /min Tarik Ca INTERNATIONAL OPERATIONS MANAGER-SQL MANAGER Work Phone: [facility] 2025 14:06-0400 SaO2% (BldA) [Mass fraction] 100 % Tarik Ca APRN-SQL MANAGER Work Phone: [facility] 2025 14:06-0400 Systolic blood pressure 139 mm[Hg] Tarik Ca APRN-SQL MANAGER Work Phone: [facility] 2025 12:31-0400 Body height 170.2 cm Tiffany Pérez DO Work Phone: [facility] 2025 12:31-0400 Body mass index (BMI) [Ratio] 19.89 kg/m2 Tiffany Pérez DO Work Phone: [facility] 2025 12:31-0400 Body temperature 97.11 [degF] Tiffany Pérez DO Work Phone: [facility] 2025 12:31-0400 Body weight 57.61 kg Tiffany Pérez DO Work Phone: [facility] 01-11-2025 08:39-0400 Body height 170.2 cm Tiffany Riehm DO Work Phone: [facility] 01-11-2025 08:39-0400 Body mass index (BMI) [Ratio] 19.86 kg/m2 Tiffany Riehm DO Work Phone: [facility] 01-11-2025 08:39-0400 Body temperature 98.01 [degF] Tiffany Riehm DO Work Phone: [facility] 01-11-2025 08:39-0400 Body weight 57.52 kg Tiffany Riehm DO Work Phone: [facility] 11-29-2024 08:07-0400 Body height 170.2 cm Tiffany Riehm DO Work Phone: [facility] 11-29-2024 08:07-0400 Body mass index (BMI) [Ratio] 20.45 kg/m2 Tiffany Riehm DO Work Phone: [facility] 11-29-2024 08:07-0400 Body temperature 98.2 [degF] Tiffany Riehm DO Work Phone: [facility] 11-29-2024 08:07-0400 Body weight 59.24 kg Tiffany Riehm DO Work Phone: [facility] Encounters Encounter Date Encounter Type Care Provider Facility Start: 04-26-2025 ambulatory Yasmine Martinez Facility:[facility] Start: 04-25-2025 End: 04-25-2025 Subsequent hospital visit by physician Dash Vazquez MD Work Phone: [facility] EEG/[facility]G [place] Start: 04-24-2025 ambulatory YASMINE MARTINEZ [facility] Start: 04-20-2025 ambulatory TATO Sofia [facility] Start: 04-17-2025 ambulatory TATO [facility] Start: 04-13-2025 ambulatory TATO [facility] Start: 04-10-2025 ambulatory SHANNAN Morin GOMEZ [facility] Start: 04-06-2025 End: 04-06-2025 Postop follow up visit related to original px Lore Smith MD Work Phone: [facility] [place] Comment on above: S/P right knee arthr oscopy (Primary Dx) Start: 04-06-2025 ambulatory LORE SMITH Facili ty[facility] Start: 03-26-2025 End: 03-26-2025 ambulatory LORE SMITH Facility:[facility] Start: 03-26-2025 End: 03-26-2025 Subsequent hospital visit by physician Lore Smith MD Work Phone: [facility]patient [facility] [place] Comment on above: Other tear of latera l meniscus of right knee, unspecified whether old or current tear, initial encounter Start: 03-19-2025 ambulatory YASMINE MARTINEZ [facility] Start: 03-09-2025 ambulatory TIFFANY PÉREZ [facility] Start: 03-08-2025 ambulatory LORE SMITH Facili ty:[facility] Start: 02-26-2025 ambulatory LORE SMITH Facili ty:[facility] Start: 02-16-2025 End: 02-16-2025 Office outpatient visit 25 minutes Lore Smith MD Work Phone: [facility] [place] Comment on above: Other tear of latera l meniscus of right knee, unspecified whether old or current tear, initial encounter (Primary Dx) Start: 02-16-2025 ambulatory LORE Claudio SMITH Facili ty:[facility] Start: 2025 ambulatory SELF SELF [facility] Start: 2025 End: 2025 Office outpatient visit 15 minutes Tarik Ca INTERNATIONAL OPERATIONS MANAGER-SQL MANAGER Work Phone: [facility] [place] Comment on above: Sore throat (Primary Dx); Exposure to confirmed case of COVID-19 Start: 2025 End: 2025 Office outpatient visit 25 minutes Tiffany Pérez DO Work Phone: [facility] Comment on above: Chronic pain of righ t knee (Primary Dx) Start: 2025 ambulatory TIFFANY PÉREZ [facility] Start: 02-02-2025 ambulatory SELF SELF [facility] Start: 01-11-2025 End: 01-11-2025 Office outpatient visit 25 minutes Tiffany Pérez DO Work Phone: [facility] Comment on above: Chronic pain of righ t knee (Primary Dx) Start: 01-11-2025 ambulatory SELF SELF [facility] Start: 01-03-2025 End: 01-03-2025 ambulatory JAIME [place] Facility:[facility] Start: 12-27-2024 End: 12-27-[address] Yasmine Martinez MD -Outpatient Breast Imaging Work Phone: Start: 12-27-2024 End: 12-27-2024 ambulatory Jaime George [facility] Comment on above: Primary localized os teoarthritis of right knee (Primary Dx) Start: 12-27-2024 End: 12-27-2024 ambulatory Yasmine Martinez Facility:[facility] Start: 12-20-2024 End: 12-20-2024 ambulatory Ana Rosa Tanner FAMILY SPECIALIST Work Phone: [facility] Comment on above: Primary localized os teoarthritis of right knee (Primary Dx) Start: 12-15-2024 End: 12-15-[address] Yasmine Martinez MD Work Phone: [facility] Work Phone: Start: 12-15-2024 End: 12-15-[address] Yasmine Martinez MD -Laboratory, [place] Work Phone: Start: 12-15-2024 End: 12-15-2024 ambulatory Yasmine Martinez Facility:[facility] Start: 12-05-2024 End: 12-05-2024 ambulatory JAIME GEORGE Facility:[facility] Start: 11-29-2024 ambulatory TIFFANY PÉREZ [facility] Start: 11-29-2024 End: 11-29-2024 Office outpatient new 45 minutes Tiffany Pérez DO Work Phone: [facility] Comment on above: Chronic pain of righ t knee (Primary Dx); Primary osteoarthritis of right knee Start: 11-29-2024 End: 11-29-2024 Subsequent hospital visit by physician Tiffany Pérez DO Work Phone: [facility] Procedures Date Procedure Procedure Detail Performing Clinician Start: 04-25-2025 Needle emg lmtd std musc 1 xtr/non-limb uni/bi Ana Greco DO Work Phone: Start: 2025 Iaadiadoo streptococ cus group a Tarik Ca INTERNATIONAL OPERATIONS MANAGER-PagaTuAlquiler Work Phone: Start: 2025 SARS-CoV-2 (COVID-19 ) RNA [Presence] in Unspecified specimen by CHELE with probe detection Tarik Ca INTERNATIONAL OPERATIONS MANAGER-SQL MANAGER Work Phone: Start: 12-27-2024 Screening mammography D ora Martinez MD Work Phone: Plan of Treatment Date Care Activity Detail Author Start: 12-27-2025 Screening for malignant neoplasm of breast MAMMOGRAM SCREENING DISCUSSION [facility] Start: 05-21-2025 End: 05-21-2025 Patient encounter procedure 05/21/2025 2:00 PM EDT Office Visit [facility] [address] [place] [address] [place] [address] Ana Greco, DO [address] [place] [address] [facility] Start: 05-14-2025 Influenza vaccination [facility] Start: 05-11-2025 End: 05-11-2025 Patient encounter procedure 05/11/2025 11:00 AM EDT Office Visit [facility] ANALYSIS MANAGER [address] [place] [address] [place] [phone] Xiomy Tan MD [address] [place] [phone] [facility] ANALYSIS MANAGER Start: 05-08-2025 End: 05-08-2025 Patient encounter procedure [facility] Start: 05-04-2025 End: 05-04-2025 Patient encounter procedure [facility] Start: 05-01-2025 End: 05-01-2025 ambulatory 05/01/2025 5:20 PM EDT Rehab Services Visit [facility] Physical [facility] [address] [place] [address] Tato Wilcox, PA-C [address] [place] [address] Michi Jo PTA [address] [place] [address] [facility] [place] Start: 04-27-2025 End: 04-27-2025 ambulatory 04/27/2025 12:40 PM EDT Rehab Services Visit [facility] [address] [place] [address] Tato Wilcox, PA-C [address] [place] [address] Michi Jo FAMILY SPECIALIST [address] [place] [address] [facility] [place] Start: 04-25-2025 End: 04-25-2025 Patient encounter procedure 04/25/2025 10:00 AM EDT Appointment [facility] EEG/[facility] [place] [address] [place] [address] Dash Vazquez MD [address] [place] [address] [facility] [place] Start: 04-10-2025 End: 04-10-2025 ambulatory 04/10/2025 10:00 AM EDT Rehab Services Visit [facility] [place] [address] [place] [address] Shannan Gomez, INTERNATIONAL OPERATIONS MANAGER-SQL MANAGER [address] [place] [phone] Janny Ramos, PT [address] [place] [phone] [facility] [place] Start: 04-09-2025 End: 04-09-2025 Patient encounter procedure 04/09/2025 10:20 AM EDT Office Visit [facility] [address] [place] [address] Tato Rueda MD [address] [place] [address] [facility] Start: 04-06-2025 End: 04-06-2025 Patient encounter procedure 04/06/2025 10:45 AM EDT Office Visit [facility] [place] [address] [facility] [address] [place], [place] [id number] Lore Smith MD [address] [facility] [address] [place], [place] [id number] [facility] [place] Start: 03-26-2025 End: 03-26-2025 Arthrs kne surg w/meniscectomy med/lat w/shvg ARTHROSCOPY KNEE W/ MENISCECTOMY Other tear of lateral meniscus of right knee, unspecified whether old or current tear, initial encounter 03/26/2025 8:05 AM EDT [facility] Start: 03-09-2025 End: 03-09-2025 Patient encounter procedure 03/09/2025 10:00 AM EDT Office Visit [facility] [address] [place] [address] Ana Greco, DO [address] [place] [address] [facility] Start: 2025 End: 2025 Patient encounter procedure 2025 12:45 PM EDT Office Visit [facility] [address] [place] [address] Tiffany Pérez, DO [address] [place] [address] [facility] Start: 01-11-2025 End: 01-11-2026 MR Knee - right WO contrast MRI KNEE RIGHT WITHOUT CONTRAST Imaging Routine Chronic pain of right knee Expected: 01/11/2025, Expires: 01/11/2026 [facility] Comment on above: Expected: 01/11/2025 , Expires: 01/11/2026 Start: 01-11-2025 End: 01-11-2025 Patient encounter procedure 01/11/2025 8:45 AM EDT Office Visit [facility] [address] [place] [address] Tiffany Pérez, DO [address] [place] [address] [facility] Start: 01-03-2025 End: 01-03-2025 ambulatory 01/03/2025 10:30 AM EDT OT/PT/Speech Visit [facility] [address] [place] [address] Jaime George, PT RT KNEE IN PAIN EVAL [facility] Comment on above: RT KNEE IN PAIN EVAL Start: 12-27-2024 End: 12-27-2024 ambulatory 12/27/2024 10:30 AM EDT OT/PT/Speech Visit [facility] [address] [place] [address] Jaime George, PT RT KNEE IN PAIN EVAL [facility] Comment on above: RT KNEE IN PAIN EVAL Start: 11-29-2024 End: 12-26-2024 XR Knee - right 4 Views [facility] Comment on above: Expected: 11/29/2024 , Expires: 12/26/2024 1 Occurrences starti ng 11/29/2024 until 11/29/2024 Start: 05-14-2024 COVID-19 VACCINE ( season) COVID-19 VACCINE () [facility] Start: 05-14-2024 Influenza vaccination INFLUENZA VACC INE (#1) [facility] Start: 2023 Diabetes Screening Diabetes Screenin g [facility] Start: 2023 Lipid panel [facility] Scre[facility] Start: 2023 Screening for malignant neoplasm of colon [facility] Start: 2018 Lipid panel LIPID SCREENING [facility] Start: 2018 Screening for malignant neoplasm of breast [facility] Start: 1999 Screening for malignant neoplasm of cervix [facility] Start: 1997 Hepatitis B vaccination HEP B VACCINE (1 of 3 - 19+ 3-dose series) [facility] Start: 1997 Hepatitis B Vaccine (1 of 3 - 19+ 3-dose series) Hepatitis B Vaccine (1 of 3 - 19+ 3-dose series) [facility] Start: 1997 Third diphtheria, tetanus and acellular pertussis (DTaP) vaccination TDAP (ADULT) [facility] Start: 1997 Urine microalbumin profile DTaP,Tdap,Td Vaccine (1 - Tdap) [facility] Start: 02-07-1996 Anxiety Screening Anxiety Screening [facility] Start: 02-07-1996 Depression Screening Depression Scre ening [facility] Start: 02-07-1996 Hepatitis C screening Hepatitis C Sc reening [facility] Start: 02-07-1996 HIV screening HIV Screening [facility] Start: 1993 HIV screening HIV SCREENING DISCUSSION [facility] Start: 1978 Hepatitis C screening HEPATITI S C VIRUS SCREENING [facility] Start: 1978 Tetanus vaccination TETANUS [facility] ARTHROSCOPY KNEE W/ MENISCECTOMY [facility] Payers Date Payer Category Payer Self-pay 2015 [employer] Blue [employer] BLUE CARD PPO OOS [id number] 2015 Managed Care (unspecified) [id number] 2015 Unknown [id number] 1978 Unknown [id number] 2..1.432860.3.579. 2.594 1978 Unknown [id number] ..1.349149.3.579. 2.594 1978 Unknown [id number] .1.490711.3.579. 2.594 1978 Unknown [id number] 2.0.1.741661.3.579. 2.594 1978 Unknown [id number] 2.0.1.640924.3.579. 2.594 1978 Unknown [id number] .0.1.961372.3.579. 2.983 1978 Unknown [id number] 2.840.1.757094.3.579. 2.983 1978 Unknown [id number] 2.16.840.1.762752.3.579. 2.983 1978 Unknown [id number] 2.16.840.1.817229.3.579. 2.983 1978 Unknown [id number] 2.16.840.1.940250.3.579. 2.983 1978 Unknown [id number] 2.16.840.1.482209.3.579. 2.98 1978 Unknown [id number] 2.16.840.1.868650.3.579. 2.98 1978 Unknown [id number] 2.16.840.1.893179.3.579. 2.98 1978 Unknown [id number] 2.16.840.1.101230.3.579. 2.983 1978 Unknown [id number] 2.16.840.1.158229.3.579. 2.98 1978 Unknown [id number] 2.16.840.1.317057.3.579. 2.983 1978 Unknown [id number] 2.16.840.1.800929.3.579. 2.983 1978 Unknown [id number] 2.16.840.1.281438.3.579. 2.983 Unknown [id number] 2.16.840.1.864385.3.579. 2.462 Unknown [id number] 2.16.840.1.705017.3.579. 2.462 Unknown [id number] 2.16.840.1.769631.3.579. 2.462 Social History Date Type Detail Facility Start: 11-29-2024 Tobacco smoking stat [facility] Never smoked tobacco [facility] Start: 11-29-2024 Tobacco use and exposure Smokeless tobacco non-user [facility] Start: 11-29-2024 End: 03-27-2025 Alcoholic beverage intake Lifetime non-drinker (finding) [facility] Start: 11-29-2024 End: 03-26-2025 History of Social function [facility] Start: 11-29-2024 End: 03-26-2025 Tobacco use panel [facility] Start: 1980 Sex assigned at Not on file [facility] Start: 10-25-2024 End: 01-01-2025 Sex Female (finding) [facility] Start: 11-23-2024 Gender identity Identifies as female gender (finding) [facility] Start: 11-23-2024 Sexual orientation Heterosexual (fin ding) [facility] Tobacco smoking stat us UTIS Unknown if ever smoked [facility] Work Phone: Start: 1980 Sex Assigned At Female [facility] National Score (1-10 0), lower number is lower risk 72 [facility] Goals Date Patient Goal Desired Activity /State Personal health goal Comment on above: Formatting of this n ote might be different from the original. 1. The patient will safely, correctly, and independently demonstrate the ability to perform a progressive HEP to achieve maximum rehabilitation potential. 2. The patient will report a decreased subjective pain rating 0-1/10 to allow the patient to discontinue pain medications, sleep a full night, sit comfortably in a chair, ride in a car, and stand to perform ADL. 3. The patient will increase knee flexion AROM to 0-120 degrees or greater to improve gait, improve stair climbing, and allow uncompensated chair transfers. 4. The patient will improve LE strength to at least 4+/5 to rise up and down from a chair without support of arms, reciprocally negotiate stairs, resume driving, and return to desired recreational activities. 5. The patient will demonstrate the ability to ascend/descend at least one flight of stairs with a reciprocal gait. 6. The patient will demonstrate a normalized gait (normal gait speed, equal stride length, equal stance time, alexis) for community distances using appropriate assistive device if necessary for safety. 7. The patient will meet goals suggested by the surgical protocols if applicable. Clinical Notes 11-29-2024 to 04-25-2025 Addendum Note - Clementina Garcia - 04/25/2025 10:00 AM EDTAddendum Note - Clementina Garcia - 04/25/2025 10:00 AM Maria Isabel Vazquez MD - 04/25/2025 10:00 AM Maria Isabel Vazquez MD - 04/25/2025 10:00 AM EDT Note Date & Type Note Facility 04-25-2025 Miscellaneous Notes Encounter addended by: Clementina Garcia on: 04/25/2025 12:34 PM Actions taken: Charge Capture section accepted documented in this encounter [facility] 04-25-2025 Note Encounter addended b y: Clementina Garcia on: 04/25/2025 12:34 PM Actions taken: Charge Capture section accepted [facility] 04-25-2025 Procedure note Associated Ord er(s): EMG & NERVE CONDUCTION Dash Vazquez MD 04/25/2025 11:23 AM Study: EMG/NCS bilateral lower extremities Date: 04/25/2025 Patient Name: Dee Holland Patient : 1980 Reason for study: 45 y.o. female, history of Sjogren disease, who presents with pain, paresthesia and weakness of the right leg. Preliminary Impression: This is a normal study. There is no electrodiagnostic evidence found of a neuropathy, myopathy or of a lumbar radiculopathy. Final, full report to be scanned as soon as possible. [facility] Work Phone: 04-25-2025 Procedure note Associated Ord er(s): EMG & NERVE CONDUCTION Dash Vazquez MD 04/25/2025 11:23 AM Study: EMG/NCS bilateral lower extremities Date: 04/25/2025 Patient Name: Dee Holland Patient : 1980 Reason for study: 45 y.o. female, history of Sjogren disease, who presents with pain, paresthesia and weakness of the right leg. Preliminary Impression: This is a normal study. There is no electrodiagnostic evidence found of a neuropathy, myopathy or of a lumbar radiculopathy. Final, full report to be scanned as soon as possible. documented in this encounter [facility] 04-06-2025 History of Presen t illness Narrative DATE OF SURGERY 03/26/25 EUNICE Price is now 11 day(s) S/P right AKS with PMM nd PLM and chondroplasty of the C. Physical therapy in progress: No Using narcotic pain medication: No Current problems or concerns: No major concerns. She is still using crutches and has been bearing weight on the surgical knee. She denies any fevers, chills, night sweats, nausea, vomiting. She denies excessive numbness, tingling, calf pain, chest pain, shortness of breath. She denies erythema, warmth, excessive drainage from the surgical site. PHYSICAL EXAM Right knee Exam: The incisions are benign--clean,dry, and intact with no erythema, warmth, purulent drainage, or other signs of infection. 2+ distal pulses and sensation intact. Effusion / Swelling: mild with ecchymosis around the incision sites. Range Of Motion: 0-90 Strength: 4-/5 with moderate quad atrophy Calf Tenderness: No ASSESSMENT 45 y.o. female 11 PLAN -Surgical findings and procedures were reviewed with the patient -Sutures removed and steri-strips applied. -WBAT on the RLE. Discontinue crutches. -Begin PT -ASA 325 mg daily for 6 weeks postop. -RICE and Tylenol as needed for pain and swelling. -Follow up in 4 weeks. documented in this encounter [facility] 03-26-2025 Nurse Surgical operation note Discharge instructions reviewed at bedside with pt and pt's spouse. Rx sent to pt's preferred pharmacy. All questions answered at this time and understanding voiced. IV removed without complication. Pt verbalizes readiness to [facility] home. [facility] Nurse Note Discharge instructions reviewed at bedside with pt and pt's spouse. Rx sent to pt's preferred pharmacy. All questions answered at this time and understanding voiced. IV removed without complication. Pt verbalizes readiness to discharge home. documented in this encounter [facility] 03-26-2025 Surgery Postoperative evaluation and management note Operative Report DATE PERFORMED: 03/26/2025 PREOPERATIVE DIAGNOSIS: Right knee complex posterior horn medial meniscus tear. POSTOPERATIVE DIAGNOSES: 1. Right knee complex posterior horn medial meniscus tear. 2. Right knee lateral meniscus tear. 3. 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 PROCEDURES: 1. Right knee arthroscopy with partial medial and partial lateral meniscectomy. 2. Right knee arthroscopy with chondroplasty medial femoral condyle. SURGEON(S): Lore Smith MD. COOLING SYSTEM OPERATOR: Tato Hughes MD, orthopedic resident. ANESTHESIA: General. ESTIMATED BLOOD LOSS: Less than 30 mL. TOTAL TOURNIQUET TIME: Zero minutes. INDICATIONS: The patient is a 45-year-old active female who has had ongoing right knee pain with mechanical symptoms for the last greater than 1 year. She was running and felt a pop in her knee. She developed swelling, pain, and then sense of instability. Subsequent imaging including MRI showed that she did, in fact, have a complex posterior horn medial meniscus tear, which did correlate with her symptoms. Risks, benefits, and treatment alternatives were explained to the patient in detail including, but not limited to, bleeding, infection, pneumonia, heart complications related to anesthesia, continued symptoms, worsened symptoms, potential need for more surgery, potential for recurrent tearing, potential for neurovascular injury, potential for wound healing complications, and potential for . The patient understood these risks, she agreed to go forward with the procedure. She did sign a written consent before she was brought to the operating room. PROCEDURE IN DETAIL: The patient was first identified in the preoperative area. She had her surgical site signed by the operative surgeon. She was then wheeled to the OR suite where she was placed in a supine position on the operative table. She was sedated and intubated by the anesthesia staff. She was administered IV antibiotics. She had the right lower extremity placed in a well-padded arthroscopic leg archuleta with a pneumatic tourniquet placed on the right thigh, but not inflated during the procedure. The left lower extremity was placed in a well-padded well leg archuleta and the foot of the table was then lowered. The right lower extremity was then prepped and draped in usual sterile fashion. The patient underwent a preoperative time-out for patient and site identification. We then made a standard anterolateral portal with the 11 blade. We inserted the arthroscope to perform a diagnostic arthroscopy. We made a standard anteromedial portal under direct visualization with a spinal needle and inserted a probe through that portal. It was evident the articular cartilage of the patellofemoral joint was found to be well maintained with no notable cartilage degeneration present. There were no loose bodies noted in the suprapatellar pouch or the medial or lateral gutters. In the medial compartment, the articular cartilage of medial femoral condyle showed a few small areas of chondral tearing/Outerbridge grade II chondrosis. We debrided the cartilage back to stable and healthy-appearing tissue using the shaver to perform a chondroplasty of the area. The medial tibial plateau cartilage was found to be minimally degenerated. There was a small area of degeneration Outerbridge grade I-II present at the very posterior aspect of the tibial plateau, which we debrided with a shaver as well. The main finding was a very complex posterior horn medial meniscus tear. There was no root detachment whatsoever. The root was found to be very stable both at the posterior root and the anterior root. We debrided the torn portion of meniscus back to stable and healthy-appearing tissue using the arthroscopic shaver, as well as arthroscopic biters. Once that debridement was completed, the meniscus was found to be very stable and very secure. We continued our diagnostic arthroscopy into the notch and the intraarticular notch of the ACL and PCL were found to be completely normal and stable upon probing. In the lateral compartment the articular cartilage of lateral femoral condyle and lateral tibial plateau were found to be minimally degenerated. There was white-white zone tearing of the midbody of the lateral meniscus. We used the arthroscopic shaver to debride the meniscus back to stable and healthy-appearing tissue performing a partial lateral meniscectomy of that area. The remaining portion of the lateral meniscus and the posterior horn root was found fully intact and stable. There were no loose bodies found in the posterior chambers medially or laterally. We then placed the scope back in the patellofemoral joint. We rinsed the joint with approximately 500 mL of saline to remove any loose fragments that were generated during the procedure. Then we removed all arthroscopic equipment and closed the portals with 3-0 nylon suture. The wounds were then dressed with Adaptic, sterile 4 x 4's, sterile ABDs, sterile Sof-Rol, and Gibran wrap was applied to cover the dressing. The patient was awakened from anesthesia and extubated. She was transferred to the postanesthesia care unit in stable condition. There were no complications of the procedure. All needle and sponge counts were correct at the end the procedure and I was present and scrubbed for the entirety of the procedure. The patient will be discharged home today with oral pain medication. She will be visited by Physical Therapy in the recovery room for crutch ambulation assistance training prior to discharge and follow up with me in my office in 1-2 weeks. She will be weightbearing as tolerated on the right lower extremity during that time. Dictated By: MD Lore Burgess MD ATTENDING TLM/MedQ JOB: [id number] DOC: [id number] [facility] 03-26-2025 Miscellaneous Notes Operative Report DATE PERFORMED: 03/26/2025 PREOPERATIVE DIAGNOSIS: Right knee complex posterior horn medial meniscus tear. POSTOPERATIVE DIAGNOSES: 1. Right knee complex posterior horn medial meniscus tear. 2. Right knee lateral meniscus tear. 3. 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 PROCEDURES: 1. Right knee arthroscopy with partial medial and partial lateral meniscectomy. 2. Right knee arthroscopy with chondroplasty medial femoral condyle. SURGEON(S): Lore Smith MD. COOLING SYSTEM OPERATOR: Tato Hughes MD, orthopedic resident. ANESTHESIA: General. ESTIMATED BLOOD LOSS: Less than 30 mL. TOTAL TOURNIQUET TIME: Zero minutes. INDICATIONS: The patient is a 45-year-old active female who has had ongoing right knee pain with mechanical symptoms for the last greater than 1 year. She was running and felt a pop in her knee. She developed swelling, pain, and then sense of instability. Subsequent imaging including MRI showed that she did, in fact, have a complex posterior horn medial meniscus tear, which did correlate with her symptoms. Risks, benefits, and treatment alternatives were explained to the patient in detail including, but not limited to, bleeding, infection, pneumonia, heart complications related to anesthesia, continued symptoms, worsened symptoms, potential need for more surgery, potential for recurrent tearing, potential for neurovascular injury, potential for wound healing complications, and potential for . The patient understood these risks, she agreed to go forward with the procedure. She did sign a written consent before she was brought to the operating room. PROCEDURE IN DETAIL: The patient was first identified in the preoperative area. She had her surgical site signed by the operative surgeon. She was then wheeled to the OR suite where she was placed in a supine position on the operative table. She was sedated and intubated by the anesthesia staff. She was administered IV antibiotics. She had the right lower extremity placed in a well-padded arthroscopic leg archuleta with a pneumatic tourniquet placed on the right thigh, but not inflated during the procedure. The left lower extremity was placed in a well-padded well leg archuleta and the foot of the table was then lowered. The right lower extremity was then prepped and draped in usual sterile fashion. The patient underwent a preoperative time-out for patient and site identification. We then made a standard anterolateral portal with the 11 blade. We inserted the arthroscope to perform a diagnostic arthroscopy. We made a standard anteromedial portal under direct visualization with a spinal needle and inserted a probe through that portal. It was evident the articular cartilage of the patellofemoral joint was found to be well maintained with no notable cartilage degeneration present. There were no loose bodies noted in the suprapatellar pouch or the medial or lateral gutters. In the medial compartment, the articular cartilage of medial femoral condyle showed a few small areas of chondral tearing/Outerbridge grade II chondrosis. We debrided the cartilage back to stable and healthy-appearing tissue using the shaver to perform a chondroplasty of the area. The medial tibial plateau cartilage was found to be minimally degenerated. There was a small area of degeneration Outerbridge grade I-II present at the very posterior aspect of the tibial plateau, which we debrided with a shaver as well. The main finding was a very complex posterior horn medial meniscus tear. There was no root detachment whatsoever. The root was found to be very stable both at the posterior root and the anterior root. We debrided the torn portion of meniscus back to stable and healthy-appearing tissue using the arthroscopic shaver, as well as arthroscopic biters. Once that debridement was completed, the meniscus was found to be very stable and very secure. We continued our diagnostic arthroscopy into the notch and the intraarticular notch of the ACL and PCL were found to be completely normal and stable upon probing. In the lateral compartment the articular cartilage of lateral femoral condyle and lateral tibial plateau were found to be minimally degenerated. There was white-white zone tearing of the midbody of the lateral meniscus. We used the arthroscopic shaver to debride the meniscus back to stable and healthy-appearing tissue performing a partial lateral meniscectomy of that area. The remaining portion of the lateral meniscus and the posterior horn root was found fully intact and stable. There were no loose bodies found in the posterior chambers medially or laterally. We then placed the scope back in the patellofemoral joint. We rinsed the joint with approximately 500 mL of saline to remove any loose fragments that were generated during the procedure. Then we removed all arthroscopic equipment and closed the portals with 3-0 nylon suture. The wounds were then dressed with Adaptic, sterile 4 x 4's, sterile ABDs, sterile Sof-Rol, and Gibran wrap was applied to cover the dressing. The patient was awakened from anesthesia and extubated. She was transferred to the postanesthesia care unit in stable condition. There were no complications of the procedure. All needle and sponge counts were correct at the end the procedure and I was present and scrubbed for the entirety of the procedure. The patient will be discharged home today with oral pain medication. She will be visited by Physical Therapy in the recovery room for crutch ambulation assistance training prior to discharge and follow up with me in my office in 1-2 weeks. She will be weightbearing as tolerated on the right lower extremity during that time. Dictated By: MD Lore Burgess MD ATTENDING TLM/MedQ JOB: [id number] DOC: [id number] Dee Holland ([id number]) PRE OPERATIVE DIAGNOSIS Other tear of lateral meniscus of right knee, unspecified whether old or current tear, initial encounter [S83.281A] POST OPERATIVE DIAGNOSIS Other tear of lateral meniscus of right knee, unspecified whether old or current tear, initial encounter [S83.281A] PROCEDURE PERFORMED Procedure(s) (LRB): ARTHROSCOPY KNEE W/ MENISCECTOMY (Right) SURGEON Surgeons and Role: * Lore Smith MD - Primary ANESTHESIOLOGIST Anesthesiologist: Arnoldo Wiseman MD RADIO EQUIPMENT REPAIRER: Harjinder Schumacher APRN-RADIO EQUIPMENT REPAIRER SURGICAL STAFF Radio Personality: Cony Guerrero RN Physician Type Rolling Machine Operator: Tato Wilcox PA-C Relief Radio Personality: Andres Saleem RN Relief Scrub: Carolina Vizcaino Scrub Person: Asia [place] Resident Assisting: Tato Hughes MD COMPLICATIONS None ESTIMATED BLOOD LOSS < 30 ml SPECIMENS No specimen sent * No specimens in log * Lore Smith MD March 26, 2025 8:42 AM documented in this encounter [facility] 03-26-2025 Surgery Postoperative evaluation and management note Dee Holland ([id number]) PRE OPERATIVE DIAGNOSIS Other tear of lateral meniscus of right knee, unspecified whether old or current tear, initial encounter [S83.281A] POST OPERATIVE DIAGNOSIS Other tear of lateral meniscus of right knee, unspecified whether old or current tear, initial encounter [S83.281A] PROCEDURE PERFORMED Procedure(s) (LRB): ARTHROSCOPY KNEE W/ MENISCECTOMY (Right) SURGEON Surgeons and Role: * Lore Smith MD - Primary ANESTHESIOLOGIST Anesthesiologist: Arnoldo Wiseman MD RADIO EQUIPMENT REPAIRER: Harjinder Schumacher APRN-RADIO EQUIPMENT REPAIRER SURGICAL STAFF Radio Personality: Cony Guerrero RN Physician Type Rolling Machine Operator: Tato Wilcox PA-C Relief Radio Personality: Andres Saleem RN Relief Scrub: Carolina Vizcaino Scrub Person: Asia [place] Resident Assisting: Tato Hughes MD COMPLICATIONS None ESTIMATED BLOOD LOSS < 30 ml SPECIMENS No specimen sent * No specimens in log * Lore Smith MD March 26, 2025 8:42 AM [facility] [place] 03-26-2025 Hospital Discharg e instructions Tato Wilcox PA-C - 03/26/2025 7:29 AM EDT KNEE ARTHROSCOPY POSTOPERATIVE INSTRUCTIONS POSTOPERATIVE APPOINTMENT The first postoperative appointment is typically 8-15 days following surgery. Call the office at [phone] if you are unsure of the date and time of your first postoperative appointment. Please note - as a standard part of your postoperative care you will be seeing a mix of the Physician or the Physician Type Rolling Machine Operator (PA) for your follow up visits. The Physician Type Rolling Machine Operator is a healthcare professional who serves as an integral part of the surgical team, and has hands-on involvement in your surgical procedure. WEIGHT BEARING STATUS WEIGHT BEARING TOLERATED WITH CAUTION Use crutch assistance as needed while you adjust to post-surgical pain, swelling, and muscle weakness. DRESSINGS / WOUND CARE Leave dressings on for 3 days following surgery. You may then remove the dressings and apply bandaids over the incisions. Do not use bandaids that form a complete seal on the skin all the way around the incisions to allow for some breathability. Some bleeding after surgery is very normal - do not be alarmed if some soaks through the dressings. Keep the incisions clean and dry - do not apply any creams or ointments. Do not remove your sutures. They will be removed in clinic at the appropriate time. SHOWERING / BATHING You may shower 3 days following surgery. Use something to cover the surgical area for a few days, such as saran wrap, to prevent soaking the incisions. No complete submersion of the surgical area in a bath tub, hot tub, pool, etc. until at least 2 weeks out from surgery. PAIN MANAGEMENT You will receive a prescription for pain medication the day of surgery--take as directed. Pain medications generally are not refilled after the initial prescription. Common side effects are nausea, drowsiness, and constipation. Consider taking the medication with food. Try an unog-bpf-aeuabut stool softener such as Colace or progress to a laxative such as Milk of Magnesia or Miralax for constipation if necessary. Do not operate a motor vehicle or heavy machinery while on narcotic pain medication. Do not consume alcohol while on narcotic pain medication. You may supplement your pain medication with Tylenol (up to 1000 mg every 6 hours) and ibuprofen (up to 800 mg every 8 hours) if you need additional help with pain control. NERVE BLOCK: As part of your postoperative pain management you may have received a nerve block. It can be normal to experience some numbness or tingling in the affected area for several days. Use caution with weight bearing as your muscles may not be fully functional increasing the risk of a fall. PHYSICAL THERAPY & HOME EXERCISES If you were given home exercises to do, begin these the day after surgery. You will receive a prescription for physical therapy. Consider where you will want to make arrangements for physical therapy. You can plan to start this approximately 1 week following the surgery. IF DOING PT OUTSIDE OF [facility], YOU MUST BRING YOUR PHYSICAL THERAPY PRESCRIPTION TO YOUR APPOINTMENT OR THE THERAPIST WILL NOT BE ABLE TO TREAT YOU. Most procedures have a specific PT protocol with guidelines for progression. The protocol for your PT can be accessed on the [facility] Sports Medicine website (Google search [facility] protocols ). Alternatively, we can provide a copy of the appropriate protocol at your postoperative appointment to give to your therapist. Stiffness and discomfort are common after surgery. Try to work through this to continue your exercises as they are important for recovery and may help your symptoms. OTHER IMPORTANT POINTS Use your crutches as directed paying close attention to your prescribed weight bearing status. Try to keep your leg elevated and ice consistently--ideally 20 minutes on, 40 minutes off as often as you can throughout the day. This will help some with pain and swelling. Avoid long periods of sitting, bed rest, or travel for the first two weeks after surgery as this can contribute to developing blood clots. Do not drive until cleared by your physician. The effects of anesthesia may linger after your surgery and can cause drowsiness, nausea, and vomiting. Do not make important decisions within the next 24 hours. EMERGENCY CARE Contact Dr. Smith's office ([phone]) if you experience any of the following: Calf pain, chest pain, or shortness of breath that does not go away. Fever over 101 degrees (low-grade fever after surgery is not uncommon) Spreading redness, pus-like drainage, or excessive bloody drainage from incisions Painful swelling or numbness Unrelenting pain Excessive nausea or vomiting For after-hours emergencies--call the main office number at [phone] to contact the on-call orthopedic physician. IF ANY OF THE ABOVE ISSUES CONTINUE TO ESCALATE OUT OF CONTROL GO TO THE NEAREST EMERGENCY ROOM SOON POSSIBLE. documented in this encounter [facility] [place] 03-26-2025 History and physical note CHIEF COMPLAINT left knee pain HISTORY OF PRESENT ILLNESS Dee is a 45 y.o. female who presents today for knee surgery. She denies any recent health changes and has been NPO since midnight. PAST MEDICAL/SURGICAL HISTORY The patient's past medical history, past surgical history, social history, medications, and allergies were reviewed and are documented in the patient's chart. REVIEW OF SYSTEMS General ROS: negative for - chills, fever or night sweats Respiratory ROS: no cough, shortness of breath, or wheezing Cardiovascular ROS: no chest pain or dyspnea on exertion Musculoskeletal ROS: positive for - generalized right knee joint pain. Neurological ROS: no TIA or stroke symptoms Skin/ integumentary ROS: no generalized rashes, no generalized erythema, no open lesions PHYSICAL EXAMINATION Physical examination does reveal a healthy appearing 45 y.o. female in no acute distress. Heart: Regular rate and rhythm. Lungs: Clear in all justice. Right Knee Exam: Range Of Motion: 0 to 130 Crepitus: Negative Effusion: Negative Quad strength: 4/5, There is notable quad and VMO atrophy present. Tender to palpation over: Medial joint line Aram: Positive Karina: Negative Anterior Drawer: Negative Posterior Drawer: Negative Valgus Stress: Negative Varus Stress: Negative IMAGING MRI of Right knee: No acute ligament or tendon tear. Complex tear of the posterior horn and posterior root of the medial meniscus. Mild medial compartment degenerative changes. No acute bony abnormality. IMPRESSION Right knee complex medial meniscus tear PLAN 1) NPO 2) Surgical site signed. 3) Because of her pain and mechanical symptoms that seem to be a bother for her , and because she has failed a significant course of conservative treatment including a physician guided home exercise program, I do recommend that she undergo Right knee arthroscopy with partial medial meniscectomy. She understands the risks and benefits of the procedure. The risks include but are not limited to bleeding, infection, damage to nerves and vessels, continued pain due to underlying arthritis, continued mechanical symptoms, continued instability, stiffness of the knee, chance that he would be no better and could be worse after surgery, potential for the formation of blood clots, and potential for . She understands the risks and would like to proceed with surgery. She understands that with underlying OA, there is a potential that the knee scope will not make her pain any better afterwards. She understands this but feels that she has tried all other non-operative alternatives and would like to proceed with surgery understanding this risk. 4) To OR for right knee arthroscopy. [facility] Work Phone: 03-26-2025 History and physical note CHIEF COMPLAINT left knee pain HISTORY OF PRESENT ILLNESS Dee is a 45 y.o. female who presents today for knee surgery. She denies any recent health changes and has been NPO since midnight. PAST MEDICAL/SURGICAL HISTORY The patient's past medical history, past surgical history, social history, medications, and allergies were reviewed and are documented in the patient's chart. REVIEW OF SYSTEMS General ROS: negative for - chills, fever or night sweats Respiratory ROS: no cough, shortness of breath, or wheezing Cardiovascular ROS: no chest pain or dyspnea on exertion Musculoskeletal ROS: positive for - generalized right knee joint pain. Neurological ROS: no TIA or stroke symptoms Skin/ integumentary ROS: no generalized rashes, no generalized erythema, no open lesions PHYSICAL EXAMINATION Physical examination does reveal a healthy appearing 45 y.o. female in no acute distress. Heart: Regular rate and rhythm. Lungs: Clear in all justice. Right Knee Exam: Range Of Motion: 0 to 130 Crepitus: Negative Effusion: Negative Quad strength: 4/5, There is notable quad and VMO atrophy present. Tender to palpation over: Medial joint line Aram: Positive Karina: Negative Anterior Drawer: Negative Posterior Drawer: Negative Valgus Stress: Negative Varus Stress: Negative IMAGING MRI of Right knee: No acute ligament or tendon tear. Complex tear of the posterior horn and posterior root of the medial meniscus. Mild medial compartment degenerative changes. No acute bony abnormality. IMPRESSION Right knee complex medial meniscus tear PLAN 1) NPO 2) Surgical site signed. 3) Because of her pain and mechanical symptoms that seem to be a bother for her , and because she has failed a significant course of conservative treatment including a physician guided home exercise program, I do recommend that she undergo Right knee arthroscopy with partial medial meniscectomy. She understands the risks and benefits of the procedure. The risks include but are not limited to bleeding, infection, damage to nerves and vessels, continued pain due to underlying arthritis, continued mechanical symptoms, continued instability, stiffness of the knee, chance that he would be no better and could be worse after surgery, potential for the formation of blood clots, and potential for . She understands the risks and would like to proceed with surgery. She understands that with underlying OA, there is a potential that the knee scope will not make her pain any better afterwards. She understands this but feels that she has tried all other non-operative alternatives and would like to proceed with surgery understanding this risk. 4) To OR for right knee arthroscopy. documented in this encounter [facility] 02-16-2025 History of Presen t illness Narrative CHIEF COMPLAINT left knee pain HISTORY OF PRESENT ILLNESS Dee is a 45 y.o. female who presents today for evaluation of Right knee. Mechanism Of Injury: Injury occurred while she was running and felt a pop. She developed swelling, pain, and instability. The symptoms have been present for 1 year(s). Onset: sudden Pain location: medial Pain severity: moderate Pain character: aching to sharp Numbness/Tingling: No Mechanical symptoms: catching and popping. Effusions: Yes Instability: sense Alleviating factors/Treatments tried: HEP, PT, NSAIDs, rest, ice Aggravating factors: running, kneeling, squatting, stairs. 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 REVIEW OF SYSTEMS General ROS: negative for - chills, fever or night sweats Respiratory ROS: no cough, shortness of breath, or wheezing Cardiovascular ROS: no chest pain or dyspnea on exertion Musculoskeletal ROS: positive for - generalized right knee joint pain. Neurological ROS: no TIA or stroke symptoms Skin/ integumentary ROS: no generalized rashes, no generalized erythema, no open lesions PHYSICAL EXAMINATION Physical examination does reveal a healthy appearing 45 y.o. female in no acute distress. She does have symmetric pulses in her bilateral upper extremities and lower extremities. She has good skin turgor in her bilateral upper extremities and lower extremities. She has symmetric light touch sensation in her bilateral upper extremities and lower extremities. Left Knee Exam: Full range of motion and strength. There are no areas of tenderness. The instability examination is negative. Right Knee Exam: Range Of Motion: 0 to 130 Crepitus: Negative Effusion: Negative Quad strength: 4/5, There is notable quad and VMO atrophy present. Tender to palpation over: Medial joint line Aram: Positive Karina: Negative Anterior Drawer: Negative Posterior Drawer: Negative Valgus Stress: Negative Varus Stress: Negative Squat test: positive Thessaly test: positive Patellar apprehension test: negative Patellar tilt test: negative J-sign: negative IMAGING MRI of Right knee: No acute ligament or tendon tear. Complex tear of the posterior horn and posterior root of the medial meniscus. Mild medial compartment degenerative changes. No acute bony abnormality. IMPRESSION Right knee complex medial meniscus tear PLAN 1) RICE and NSAIDs as needed for pain and swelling. 2) Caution with kneeling and squatting. 3) Because of her pain and mechanical symptoms that seem to be a bother for her , and because she has failed a significant course of conservative treatment including a physician guided home exercise program, I do recommend that she undergo Right knee arthroscopy with partial medial meniscectomy. She understands the risks and benefits of the procedure. The risks include but are not limited to bleeding, infection, damage to nerves and vessels, continued pain due to underlying arthritis, continued mechanical symptoms, continued instability, stiffness of the knee, chance that he would be no better and could be worse after surgery, potential for the formation of blood clots, and potential for . She understands the risks and would like to proceed with surgery. She understands that with underlying OA, there is a potential that the knee scope will not make her pain any better afterwards. She understands this but feels that she has tried all other non-operative alternatives and would like to proceed with surgery understanding this risk. We will schedule her at the next available time. All questions were answered today and informed consent was obtained from the patient. She was encouraged to contact our office should she have any further questions prior to the procedure. documented in this encounter [facility] 2025 History of Presen t illness Narrative Main historian: self Patient presents with cough Associated symptoms: sore throat on right side headache Onset: wednesday Self treatments: delsym Alleviating factors no Aggravating factors: no Exposures: tested positive for covid wednesday Last visit: HPI Dee Holland 1980 presents to the [facility] with Chief Complaint Patient presents with Cough Main historian: self Patient presents with cough Associated symptoms: sore throat on right side, headache Onset: Wednesday Self treatments: delsym Alleviating factors none Aggravating factors: none Exposures: tested positive for covid wednesday History No Known Allergies Current Outpatient Medications Medication Sig Ascorbic Acid 1000 MG tablet Take 1 tablet by mouth daily. clonazePAM 0.5 MG Tab Dispersible tablet Folic Acid 400 MCG tablet Take 1 tablet by mouth daily. Propranolol 10 MG tablet History reviewed. No pertinent family history. No past medical history on file. No past surgical history on file. Social History Socioeconomic History Marital status: Spouse name: Not on file Number of children: Not on file Years of education: Not on file Highest education level: Not on file Occupational History Not on file Tobacco Use Smoking status: Never Smokeless tobacco: Never Vaping Use Vaping status: Never Used Substance and Sexual Activity Alcohol use: Never Drug use: Never Sexual activity: Not on file Other Topics Concern Not on file Social History Narrative Not on file Social Drivers of Health Financial Resource Strain: Not on file Food Insecurity: Not on file Transportation Needs: Not on file Physical Activity: Not on file Stress: Not on file Social Connections: Not on file Personal Safety: Not on file Housing Stability: Not on file ROS Review of Systems 8 systems reviewed with patient, negative unless specifically mentioned in history of present illness PHYSICAL EXAM Visit Vitals BP (!) 139/95 (BP Location: Right arm, BP Position: Sitting) Pulse 80 Temp 98.6 F (37 C) (Temporal) Resp 12 Wt 57.4 kg (126 lb 9.6 oz) SpO2 100% BMI 19.83 kg/m Physical Exam Vitals and nursing note reviewed. Constitutional: General: She is not in acute distress. Appearance: Normal appearance. She is well-developed. She is not ill-appearing or diaphoretic. HENT: Head: Normocephalic. Nose: Nose normal. Mouth/Throat: Mouth: Mucous membranes are moist. Pharynx: Oropharynx is clear. Eyes: Pupils: Pupils are equal, round, and reactive to light. Cardiovascular: Rate and Rhythm: Normal rate and regular rhythm. Heart sounds: Normal heart sounds. Pulmonary: Effort: Pulmonary effort is normal. No respiratory distress. Breath sounds: Normal breath sounds. Musculoskeletal: Cervical back: Neck supple. Skin: General: Skin is warm and dry. Capillary Refill: Capillary refill takes less than 2 seconds. Neurological: General: No focal deficit present. Mental Status: She is alert and oriented to person, place, and time. Psychiatric: Mood and Affect: Mood normal. Behavior: Behavior normal. RESULTS Recent Results (from the past 2 hours) SARS-COV-2 RAPID ANTIGEN (CLINIC ONLY) Collection Time: 02/06/25 2:10 PM Specimen: NARES Result Value Ref Range SARS-COV-2 Rapid Antigen NOT DETECTED NOT DETECTED NARRATIVE -1 This test was performed using lateral flow immunoassay. This test does not differentiate between SARS-CoV and SARS-CoV2. POCT RAPID STREP A Collection Time: 02/06/25 2:24 PM Result Value Ref Range POCT RAPID STREP A neg (+/-) ASSESSMENT/PLAN 1. Sore throat 2. Exposure to confirmed case of COVID-19 Orders Placed This Encounter SARS-COV-2 RAPID ANTIGEN (CLINIC ONLY) POCT RAPID STREP A Strep and COVID negative. Symptoms appear viral. Could be too early to test positive for COVID19. Directly exposed at home. Continue OTC meds. If symptoms worsen patient was advised to follow up in our office, primary care provider or the Emergency Dept. Benefits, Risks, Contraindications, and Complications of recommended treatments were explained. The patient verbalized understanding and agrees to proceed with plan. DAVIS Ryan 2025 documented in this encounter [facility] 2025 History of Presen t illness Narrative Chief Complaint Patient presents with Right Knee - MRI Results Pain Radiation To: Down the front of the leg down to the ankle Pain Duration: June 2024 S/P Surg 2016, Feb 2024 knee dropped while running Pain Frequency: frequent Pain Quality: burning, squeezing, tightness Factors That Aggravate Pain: activity, other (see comments) (Bending,standing) Factors That Relieve Pain: rest, cold Here for office visit and re-evaluation. Worsening symptoms at times. Most recent CSI: IMPRESSION/PLAN: No acute ligament or tendon tear. Complex tear of the posterior horn and posterior root of the medial meniscus. Mild medial compartment degenerative changes. No acute bony abnormality. Please see above for any further details Recent MRI results reviewed and findings discussed. Has tried and failed several conservative measures. Medication management: Continue current treatment. We have discussed that ultimately surgical intervention would be a reasonable next step in the treatment plan. Referral for surgical consultation made. Visit Vitals Temp 97.1 F (36.2 C) (Temporal) Ht 1.702 m (5' 7) Wt 57.6 kg (127 lb) BMI 19.89 kg/m *Time components listed in minutes below. This data may or may not be needed for insurance reimbursement purposes. Reviewing clinical note(s) from previous visit/ER/urgent care/PCP/other specialists 4 Review of medical history 4 Review of medical education manager or customer service trainer note 4 Independently obtain and review medical history and history of present illness with patient 4 Other counseling and coordination of care 7 Updating patient chart, documentation of clinical encounter and signing of orders 7 Medication ordering and discussion of risks, benefits and alternatives 3 PT ordering and discussion of expectations including proper progression 3 Independent review of previous imaging 4 Review of pertinent labs 3 Communicating and/or referring to other specialist 2 *Portions of this note may have been created with [email or web address], other software, or a scribe, which leads to grammatical and typographical errors which are not business services representative of the intent with my spoken words. Chief Complaint Patient presents with Right Knee - MRI Results Pain Radiation To: Down the front of the leg down to the ankle Pain Duration: June 2024 S/P Surg 2016, Feb 2024 knee dropped while running Pain Frequency: frequent Pain Quality: burning, squeezing, tightness Factors That Aggravate Pain: activity, other (see comments) (Bending,standing) Factors That Relieve Pain: rest, cold Here for office visit and re-evaluation. Worsening symptoms at times. IMPRESSION/PLAN: Recent MRI reviewed with results below. Complex tear of the posterior horn and posterior root of the medial meniscus. Mild medial compartment degenerative changes. No acute bony abnormality. Please see above for any further details Recent MRI results reviewed and findings discussed. Has tried and failed several conservative measures. Medication management: Continue Mobic Did PT, continue HEP. We have discussed that ultimately surgical intervention would be a reasonable next step in the treatment plan. Referral for surgical consultation made. Visit Vitals Temp 97.1 F (36.2 C) (Temporal) Ht 1.702 m (5' 7) Wt 57.6 kg (127 lb) BMI 19.89 kg/m *Time components listed in minutes below. This data may or may not be needed for insurance reimbursement purposes. Reviewing clinical note(s) from previous visit/ER/urgent care/PCP/other specialists 4 Review of medical history 4 Review of medical education manager or customer service trainer note 4 Independently obtain and review medical history and history of present illness with patient 4 Other counseling and coordination of care 7 Updating patient chart, documentation of clinical encounter and signing of orders 7 Communicating and/or referring to other specialist 2 *Portions of this note may have been created with [email or web address], other software, or a scribe, which leads to grammatical and typographical errors which are not business services representative of the intent with my spoken words. Clinical assistant store manager trainee/AT/DENIA was acting as a scribe today for this note. I have performed all essential components of the history, and physical exam. I have confirmed the diagnosis and developed a plan of care at this visit. I have reviewed the note following the visit and have made edits as appropriate to my evaluation and plan of care. Tiffany Pérez DO documented in this encounter [facility] 01-11-2025 History of Presen t illness Narrative Chief Complaint Patient presents with Right Knee - Pain Pain Radiation To: down leg Pain Duration: 2023., S/P surg. 2016, February 2024 while running knee popped. Pain Frequency: frequent Pain Quality: aching, sharp, soreness, radiating Factors That Aggravate Pain: activity (prolong walking/standing, stairs.) Factors That Relieve Pain: rest (P.T.) Here for office visit and re-evaluation of the right knee. 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 In 2017 in [facility] she had a right knee menisectomy. She has had pain in the right knee ever since. She has begun Meloxicam and has attended physical therapy for the right knee. The Meloxicam did cause some stomach upset, but was tolerable. She feels that the therapy helped some. She denies any painful mechanical symptoms at this time. She is beginning to have burning sensation in the left knee. She is establishing care with a [facility] in [place]. IMPRESSION/PLAN: Xrays from 11/29/24 demonstrated mild right knee degenerative changes. Medical decision making has been discussed with patient including potential further work-up, surgical and non-surgical options. Continue current conservative treatment. Medication management: Continue Meloxicam 7.5mg as prescribed Brace: Continue use of brace, as needed Therapy: Continue therapy/HEP. Ddx discussed which includes tear or other significant derangement which could require surgical intervention or change in treatment plan. Patient has tried and failed conservative measures which has included greater than 6 weeks of therapy and/or directed home exercises in the last 12 weeks, NSAIDs or other analgesics, activity modification and other modalities. The directed home exercise full details include usual an customary modalities, proper technique and progression. Specific details include attempts to improve pain and function. Again, this was tired and the patient did not improve. MRI is warranted and further delay could be a harmful to the patient. The patient understands their current insurance provider's approval is needed for the MRI. The patient also understands their physician has ordered the study which is medically necessary and any delay caused by the insurance, may be harmful to the patient. The ordering physician will support any action the patient chooses to take against the insurance company in the event of delay caused by the current insurance company. MRI needed to further direct treatment plan. This has been ordered and I will see the patient back after the MRI for a [id number] encounter to review results, re-evaluate as needed and guide any further treatment. A follow-up was scheduled today and patient will call if this needs to be changed depending on timing of the MRI study or for any other reason. Referral to Dr Greco, regarding lower back pain. Follow-up in End of January for office visit re-evaluation. [place]. Visit Vitals Temp 98 F (36.7 C) (Temporal) Ht 1.702 m (5' 7) Wt 57.5 kg (126 lb 12.8 oz) BMI 19.86 kg/m *Time components listed in minutes below. This data may or may not be needed for insurance reimbursement purposes. Reviewing clinical note(s) from previous visit/ER/urgent care/PCP/other specialists 4 Review of medical history 4 Review of medical education manager or customer service trainer note 4 Independently obtain and review medical history and history of present illness with patient 4 Other counseling and coordination of care 7 Updating patient chart, documentation of clinical encounter and signing of orders 7 Medication ordering and discussion of risks, benefits and alternatives 3 PT ordering and discussion of expectations including proper progression 3 Independent review of previous imaging 4 Review of pertinent labs 3 Communicating and/or referring to other specialist 2 *Portions of this note may have been created with [email or web address], other software, or a scribe, which leads to grammatical and typographical errors which are not business services representative of the intent with my spoken words. Chief Complaint Patient presents with Right Knee - Pain Pain Radiation To: down leg Pain Duration: 2023., S/P surg. 2016, February 2024 while running knee popped. Pain Frequency: frequent Pain Quality: aching, sharp, soreness, radiating Factors That Aggravate Pain: activity (prolong walking/standing, stairs.) Factors That Relieve Pain: rest (P.T.) Here for office visit and re-evaluation of the right knee. 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 In 2017 in [facility] she had a right knee menisectomy. She has had pain in the right knee ever since. She has begun Meloxicam and has attended physical therapy for the right knee. The Meloxicam did cause some stomach upset, but was tolerable. She feels that the therapy helped some. She denies any painful mechanical symptoms at this time. She is beginning to have burning sensation in the left knee. Worsening symptoms at knee. She is also describing chronic LBP with radiation to the lower extremities. She is establishing care with a [facility] in [place]. [place] [facility] IMPRESSION/PLAN: Xrays from 11/29/24 demonstrated mild right knee degenerative changes. Medical decision making has been discussed with patient including potential further work-up, surgical and non-surgical options. Continue current conservative treatment. Medication management: Continue Meloxicam 7.5mg as prescribed Brace: Continue use of brace, as needed Therapy: Continue therapy/HEP. Ddx discussed which includes tear or other significant derangement which could require surgical intervention or change in treatment plan. Patient has tried and failed conservative measures which has included greater than 6 weeks of therapy and/or directed home exercises in the last 12 weeks, NSAIDs or other analgesics, activity modification and other modalities. The directed home exercise full details include usual an customary modalities, proper technique and progression. Specific details include attempts to improve pain and function. Again, this was tired and the patient did not improve. MRI is warranted and further delay could be a harmful to the patient. The patient understands their current insurance provider's approval is needed for the MRI. The patient also understands their physician has ordered the study which is medically necessary and any delay caused by the insurance, may be harmful to the patient. The ordering physician will support any action the patient chooses to take against the insurance company in the event of delay caused by the current insurance company. MRI needed to further direct treatment plan. This has been ordered and I will see the patient back after the MRI for a [id number] encounter to review results, re-evaluate as needed and guide any further treatment. A follow-up was scheduled today and patient will call if this needs to be changed depending on timing of the MRI study or for any other reason. Referral to Dr Greco, regarding lower back pain. Follow-up in End of January for office visit re-evaluation. As [place]. Visit Vitals Temp 98 F (36.7 C) (Temporal) Ht 1.702 m (5' 7) Wt 57.5 kg (126 lb 12.8 oz) BMI 19.86 kg/m *Time components listed in minutes below. This data may or may not be needed for insurance reimbursement purposes. Reviewing clinical note(s) from previous visit/ER/urgent care/PCP/other specialists 4 Review of medical history 4 Review of medical education manager or customer service trainer note 4 Independently obtain and review medical history and history of present illness with patient 4 Other counseling and coordination of care 7 Updating patient chart, documentation of clinical encounter and signing of orders 7 *Portions of this note may have been created with [email or web address], other software, or a scribe, which leads to grammatical and typographical errors which are not business services representative of the intent with my spoken words. Clinical assistant store manager trainee/AT/MA was acting as a scribe today for this note. I have performed all essential components of the history, and physical exam. I have confirmed the diagnosis and developed a plan of care at this visit. I have reviewed the note following the visit and have made edits as appropriate to my evaluation and plan of care. Tiffany Pérez DO documented in this encounter [facility] 01-05-2025 Note HNO ID: [id number] Author: JAIME GEORGE PT Service: ? Author Type: Physical Therapist Type: Progress Notes Filed: 01/05/2025 10:07 Note Text: Episode Visit Count: 4 Therapist That Will Accept/Oversee The Plan Of Care: Jaime George Start of Care Date: 12/05/24 Onset Date: 09/13/24 REHABILITATION AND SPORTS THERAPY PHYSICAL THERAPY DISCONTINUANCE OF CARE PLAN OF CARE UPDATE: Assessment: Dee Holland is discontinued from Physical Therapy services due to maximal benefit.. Patient was seen for 4 visits from Start of Care Date: 12/05/24 to 01/05/2025 and treatment included: Therapeutic exercise, Manual therapy, and Self-assisted management. Goals updated on 01/03/2025. Goals for Episode of Care: established 12/05/24 [place] in home exercise program. Met Patient will decrease pain rating by 2 points to meet minimal clinical important difference for numeric pain rating scale. Not met Patient will demonstrate increase in RLE strength to 5/5 during manual muscle testing or 90% quad strength compared to L via dynamometer testing in order to improve function for leisure / recreation skills and prior functional tasks. Not met Perform walking, twisting/pivoting with decreased report of symptoms/pain in 6 weeks. Not met SUBJECTIVE: Patient notes some small improvements, but overall the knee can still swell and hurts with higher levels of exertion on stairs, standing or walking for prolonged periods of time, and squatting down. Functional Limitations: walking in the community, stair negotiation, bending, heavy exertion, lifting, physical activities, recreational activities, kneeling, running, jumping, squatting Intake Information: Prescription present Pain: Pain Pain Level: 4 Pain Location: Knee - Right Description: Burning Frequency: Intermittent PROMIS Scales 01/03/2025 12/04/2024 Higher is Better Phys Func - T Score 40 (mild dysfunction) 42 (mild dysfunction) Phys Func - Percentile 16 21 Self-Eff Symptom - T Score 42 (Average) 38 (Low) Self-Eff Symptom - Percentile 21 12 T-scores: mean of general population = 50. 5 points is clinically meaningfully difference Percentiles provide an indication of how the patient's score ranks in relation to the general population. Higher percentile rankings indicate better function/quality of life. 50th percentile is the average of the general population and indicates half of respondents had a worse score. OBJECTIVE MEASURES WITH LEVEL OF FUNCTION: LE AROM R Knee Extension: 7 Degrees R Knee Flexion: 130 Degrees L Knee Extension: 10 Degrees L Knee Flexion: 152 Degrees LE Strength R LE Strength: 4/5 grossly Dynamometer Strength Right Quadriceps Strength (lbs): 36.6 Left Quadriceps Strength (lbs): 55.7 TREATMENT: Therapeutic Exercise: 1: Stationary bike x 5 minutes, seat #9, level 6.0 (discussed patients progress towards therapy goals) 2: Objective measures obtained 3: Discussed importance of continuing HEP below and not push into pain 4: *Heel slides 3x10, 3-5 sec holds 5: *Prone quad stretch 2x30 seconds 6: SL hip abduction series 3x10 each 7: Clamshells 3x10 8: SLR 3x20 9: Hip thrusts 3x10 Skilled Intervention: Patient was educated in proper exercise technique and purpose for exercises. Skilled judgment was used in selection of appropriate interventions. Provided written instruction for home exercise program to facilitate proper performance and compliance. Correct performance of therapeutic exercises was facilitated with verbal, visual, and tactile cuing. Billing Therapeutic Exercise Treatment Minutes: 38 Skilled Treatment Time Minutes (timed and untimed codes): 38 Total Session Time (minutes): 38 Session Start Time : 1033 Session Stop Time : 1111 Jaime George PT [facility] 12-27-2024 Note HNO ID: [id number] Author: JAIME GEORGE PT Service: ? Author Type: Physical Therapist Type: Progress Notes Filed: 12/27/2024 13:02 Note Text: Episode Visit Count: 3 Therapist That Will Accept/Oversee The Plan Of Care: Jaime George Start of Care Date: 12/05/24 Onset Date: 09/13/24 Patient Identified by Name and Date of : Yes REHABILITATION AND SPORTS THERAPY PHYSICAL THERAPY TREATMENT NOTE ASSESSMENT: Dee Holland tolerated the session with fatigue and expected muscle soreness. She demonstrated tightness in R quad, but exercises are going well. The patient will continue to benefit from ongoing skilled physical therapy to progress toward set goals. PLAN FOR NEXT VISIT: Continue incorportaing standing exercises. Consider TRX squats, [place] SUBJECTIVE: Patient feels good about exercises, however, feels a burning sensation after some exercises. Overall, she feels good, but tight. She mentioned feeling like she is progressing very slow. Pain: Pain Pain Level: 4 Pain Location: Knee - Right Description: Burning Frequency: Intermittent OBJECTIVE MEASURES WITH LEVEL OF FUNCTION: Form observed throughout session Normal dorsal pedal, popliteal pulses noted TREATMENT: Therapeutic Exercise: 1: Stationary bike x 5 minutes, seat #9, level 6.0 (1:1 throughout. Discussed current HEP.) 2: SL hip abduction series 3x10 each variation 3: Clamshells 3x10 4: SLR 3x10 2# ankle weight 5: *Prone quad stretch 2x30 seconds 6: 6 step ups 3x10 (less shaky and no pain noted) 7: Lateral 4 steps 2x10 (pt felt shaky on this one but no pain) 8: *Calf Raises 2x10 Skilled Intervention: Patient was educated in proper exercise technique and purpose for exercises. Reviewed and educated patient on additions/changes for home exercise program as above. Skilled judgment was used in selection of appropriate interventions. Correct performance of therapeutic exercises was facilitated with verbal, visual, and tactile cuing. Patient education as noted. Billing Therapeutic Exercise Treatment Minutes: 41 Skilled Treatment Time Minutes (timed and untimed codes): 41 Total Session Time (minutes): 41 Session Start Time : 1033 Session Stop Time : 1114 JESSICA Roman Supervising therapist was present and guided the care of the patient for the entire session on this date. All documentation was reviewed and agreed upon. Jaime George, PT [facility] 12-27-2024 History of Presen t illness Narrative Episode Visit Count: 3 Therapist That Will Accept/Oversee The Plan Of Care: Jaime George Start of Care Date: 12/05/24 Onset Date: 09/13/24 Patient Identified by Name and Date of : Yes REHABILITATION AND SPORTS THERAPY PHYSICAL THERAPY TREATMENT NOTE ASSESSMENT: Dee Holland tolerated the session with fatigue and expected muscle soreness. She demonstrated tightness in R quad, but exercises are going well. The patient will continue to benefit from ongoing skilled physical therapy to progress toward set goals. PLAN FOR NEXT VISIT: Continue incorportaing standing exercises. Consider TRX squats, [place] SUBJECTIVE: Patient feels good about exercises, however, feels a burning sensation after some exercises. Overall, she feels good, but tight. She mentioned feeling like she is progressing very slow. Pain: Pain Pain Level: 4 Pain Location: Knee - Right Description: Burning Frequency: Intermittent OBJECTIVE MEASURES WITH LEVEL OF FUNCTION: Form observed throughout session Normal dorsal pedal, popliteal pulses noted TREATMENT: Therapeutic Exercise: 1: Stationary bike x 5 minutes, seat #9, level 6.0 (1:1 throughout. Discussed current HEP.) 2: SL hip abduction series 3x10 each variation 3: Clamshells 3x10 4: SLR 3x10 2# ankle weight 5: *Prone quad stretch 2x30 seconds 6: 6 step ups 3x10 (less shaky and no pain noted) 7: Lateral 4 steps 2x10 (pt felt shaky on this one but no pain) 8: *Calf Raises 2x10 Skilled Intervention: Patient was educated in proper exercise technique and purpose for exercises. Reviewed and educated patient on additions/changes for home exercise program as above. Skilled judgment was used in selection of appropriate interventions. Correct performance of therapeutic exercises was facilitated with verbal, visual, and tactile cuing. Patient education as noted. Billing Therapeutic Exercise Treatment Minutes: 41 Skilled Treatment Time Minutes (timed and untimed codes): 41 Total Session Time (minutes): 41 Session Start Time : 1033 Session Stop Time : 1114 JESSICA Roman Supervising therapist was present and guided the care of the patient for the entire session on this date. All documentation was reviewed and agreed upon. Jaime George PT documented in this encounter [facility] 12-20-2024 Note HNO ID: [id number] Author: JAIME GEOGRE PT Service: ? Author Type: Physical Therapist Type: Progress Notes Filed: 12/22/2024 14:56 Note Text: Episode Visit Count: 2 Therapist That Will Accept/Oversee The Plan Of Care: Jaime George Start of Care Date: 12/05/24 Onset Date: 09/13/24 Patient Identified by Name and Date of : Yes REHABILITATION AND SPORTS THERAPY PHYSICAL THERAPY TREATMENT NOTE ASSESSMENT: Dee Holland tolerated the session with fatigue and expected muscle soreness. She demonstrated difficulty with pain with 6 inch step up, improved with decreasing step height. The patient will continue to benefit from ongoing skilled physical therapy to progress toward set goals. PLAN FOR NEXT VISIT: Continue incorportaing standing exercises. Consider lateral step ups. SUBJECTIVE: Pt reports that her R knee is feeling better, started to feel better about 3 days ago. Pt states that HEP is going well, also does tretching and recumbant bike. States her muscle are tight and using a TENS unit at home to help. Pain: Pain Pain Level: 3 Pain Location: Knee - Right Description: Burning Frequency: Intermittent OBJECTIVE MEASURES WITH LEVEL OF FUNCTION: Tightness along vastus medialis. TREATMENT: Therapeutic Exercise: 1: Stationary bike x 5 minutes, seat #9, level 6.0 (1:1 throughout. Discussed current hEP.) 2: SL hip abduction series 3x10 each variation 3: Clamshells 3x10 4: SLR 3x10 5: *Prone quad stretch 3x30 seconds 6: Step ups on 6 inch step x 10, felt a little pain and shaky 7: Step ups on 4 inch step 2x10 RLE, easier and no pain 8: CR 2x10 Skilled Intervention: Patient was educated in proper exercise technique and purpose for exercises. Reviewed and educated patient on additions/changes for home exercise program as above (*). Skilled judgment was used in selection of appropriate interventions. Correct performance of therapeutic exercises was facilitated with verbal and visual cuing. Manual Therapy: 1: Gentle STM over vastus medialis x 8 minutes with RLE on bolster Skilled Intervention: Manual skills to improve joint mobility, ROM, and decrease pain. Utilized anatomy knowledge of the therapist, and assessment of patient's response to intervention. Billing Therapeutic Exercise Treatment Minutes: 31 Manual TherapyTreatment Minutes: 8 Skilled Treatment Time Minutes (timed and untimed codes): 39 Total Session Time (minutes): 39 Session Start Time : 1451 Session Stop Time : 1530 Ana Rosa Tanner, FAMILY SPECIALIST Jaime George, PT [facility] 12-20-2024 History of Presen t illness Narrative Episode Visit Count: 2 Therapist That Will Accept/Oversee The Plan Of Care: Jaime George Start of Care Date: 12/05/24 Onset Date: 09/13/24 Patient Identified by Name and Date of : Yes REHABILITATION AND SPORTS THERAPY PHYSICAL THERAPY TREATMENT NOTE ASSESSMENT: Dee Holland tolerated the session with fatigue and expected muscle soreness. She demonstrated difficulty with pain with 6 inch step up, improved with decreasing step height. The patient will continue to benefit from ongoing skilled physical therapy to progress toward set goals. PLAN FOR NEXT VISIT: Continue incorportaing standing exercises. Consider lateral step ups. SUBJECTIVE: Pt reports that her R knee is feeling better, started to feel better about 3 days ago. Pt states that HEP is going well, also does tretching and recumbant bike. States her muscle are tight and using a TENS unit at home to help. Pain: Pain Pain Level: 3 Pain Location: Knee - Right Description: Burning Frequency: Intermittent OBJECTIVE MEASURES WITH LEVEL OF FUNCTION: Tightness along vastus medialis. TREATMENT: Therapeutic Exercise: 1: Stationary bike x 5 minutes, seat #9, level 6.0 (1:1 throughout. Discussed current hEP.) 2: SL hip abduction series 3x10 each variation 3: Clamshells 3x10 4: SLR 3x10 5: *Prone quad stretch 3x30 seconds 6: Step ups on 6 inch step x 10, felt a little pain and shaky 7: Step ups on 4 inch step 2x10 RLE, easier and no pain 8: CR 2x10 Skilled Intervention: Patient was educated in proper exercise technique and purpose for exercises. Reviewed and educated patient on additions/changes for home exercise program as above (*). Skilled judgment was used in selection of appropriate interventions. Correct performance of therapeutic exercises was facilitated with verbal and visual cuing. Manual Therapy: 1: Gentle STM over vastus medialis x 8 minutes with RLE on bolster Skilled Intervention: Manual skills to improve joint mobility, ROM, and decrease pain. Utilized anatomy knowledge of the therapist, and assessment of patient's response to intervention. Billing Therapeutic Exercise Treatment Minutes: 31 Manual TherapyTreatment Minutes: 8 Skilled Treatment Time Minutes (timed and untimed codes): 39 Total Session Time (minutes): 39 Session Start Time : 1451 Session Stop Time : 1530 LAURA Chavez PT documented in this encounter [facility] 12-05-2024 Note HNO ID: [id number] Author: JAIME GEORGE PT Service: ? Author Type: Physical Therapist Type: Progress Notes Filed: 12/05/2024 14:27 Note Text: Episode Visit Count: 1 Therapist That Will Accept/Oversee The Plan Of Care: Jaime George Start of Care Date: 12/05/24 Onset Date: 09/13/24 Patient Identified by Name and Date of : Yes REHABILITATION AND SPORTS THERAPY PHYSICAL THERAPY EVALUATION PLAN OF CARE: Assessment: Dee Kinney presents with diagnosis of Primary OA of R knee that interferes with walking in the community, stair negotiation, bending, heavy exertion, lifting, physical activities, recreational activities, kneeling, running, jumping, squatting . The patient presents with impairments in ADL's, overall function, strength, and symptom management. PROMIS? (Patient-Reported Outcomes Measurement Information System) scores were reviewed and identified as a rehabilitation concern. Prognosis for therapy is Good due to: current objective clinical presentation, good overall health status, acuteness of condition, positive past response to therapy, within-session changes, good support system/ coping skills . The patient will benefit from skilled therapy services to meet the goals established for this plan of care as noted below. Goals for Episode of Care: established 12/05/24 [place] in home exercise program. Patient will decrease pain rating by 2 points to meet minimal clinical important difference for numeric pain rating scale. Patient will demonstrate increase in RLE strength to 5/5 during manual muscle testing or 90% quad strength compared to L via dynamometer testing in order to improve function for leisure / recreation skills and prior functional tasks. Perform walking, twisting/pivoting with decreased report of symptoms/pain in 6 weeks. Time Frame for Goals and Treatment : 02/04/25 Planned Interventions, Frequency, and Duration: Current Frequency: 1x/week Duration: 8 weeks Total Number of Visits Planned: 8 Planned Treatment Interventions: Therapeutic exercise (23862), Neuromuscular re-education (99378), Manual therapy (34451), Therapeutic activities (22713), Self-assisted management (80220), Patient/Family/Caregiver Education, Body Mechanics Training PLAN FOR NEXT VISIT: assess carry over of HEP, progress per tolerance to WB exercises Patient demonstrates good understanding of plan of care and treatment. The above goals and plan of care were discussed and agreed upon by patient/family. SUBJECTIVE: R knee pain since February when she was running and heard a loud pop. PMH of meniscus shaving in 2016. She notes that after that and until this most recent incidient she had reduced motion, feelings of instability, weakness, etc. Also has radiating pain from the inside/posterior part of the calf/kennedy. Also describes some intermittent tingling after twisting/rotating type motions. Functional Limitations: walking in the community, stair negotiation, bending, heavy exertion, lifting, physical activities, recreational activities, kneeling, running, jumping, squatting Prior Level of Function: Independent without limitations Intake Information: Prescription present Pain: Pain Pain Level: 5 Pain Location: Knee - Right Description: Burning, Tightness Frequency: Intermittent Post Treatment Pain Post Treatment Pain Level: No Change PROMIS Scales 12/04/2024 Higher is Better Phys Func - T Score 42 (mild dysfunction) Phys Func - Percentile 21 Self-Eff Symptom - T Score 38 (Low) Self-Eff Symptom - Percentile 12 T-scores: mean of general population = 50. 5 points is clinically meaningfully difference Percentiles provide an indication of how the patient's score ranks in relation to the general population. Higher percentile rankings indicate better function/quality of life. 50th percentile is the average of the general population and indicates half of respondents had a worse score. OBJECTIVE MEASURES WITH LEVEL OF FUNCTION: LE Strength R LE Strength: 4/5 grossly L LE Strength: 5/5 grossly Dynamometer Strength Right Quadriceps Strength (lbs): 33.1 Left Quadriceps Strength (lbs): 53.3 Special Tests - Knee Karina: Right Negative Aram's Test: Right Positive Valgus stress at 0 degrees: Right Negative Valgus stress at 30 degrees: Right Negative Varus stress at 0 degrees: Right Negative Varus stress at 30 degrees: Right Negative Waist / Hip Waist Circumference: 85 Inches Hip Circumference: 96 Inches Waist to Hip Ratio:: 0.89 Clarinda waist/hip ratio: Female: 0.8 or Less Functional Performance Test Results 5 Times Sit to Stand Test : 11 sec Timed Up and Go (sec): 6 sec Education: TREATMENT: PT Treatment Interventions: Therapeutic Exercise, Self-Senior Living Management Evaluation Therapeutic Exercise: 1: *SL hip abduction series 3x10 each variation 2: *Clamshells 3x10 3: *SLR 3x20 4: *Hip thrusts 3x1 (more content not included)... [facility] 11-29-2024 History of Presen t illness Narrative Chief Complaint Patient presents with Right Knee - Pain Pain Radiation To: occ. down leg to ankle Pain Duration: 2023, past surgery 2016. February 2024 while runnning knee popped and had swelling. Pain Frequency: frequent Pain Quality: aching, sharp, shooting, soreness, radiating, dull Factors That Aggravate Pain: activity (prolong walking/standing, stairs.) Factors That Relieve Pain: rest Here for initial consultation for right knee pain. A self referral, by [employer]. 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 Dee she moved to [place]. In 2017 in [facility] she had a right knee menisectomy. She has had pain in the right knee ever since. Dee reports having some mechanical symptoms in the right knee. She will have radiating pain down to the right ankle. She has been wearing a knee brace. Has completed physical therapy. History of Sjogren's syndrome. Pertinent medical records and imaging reviewed. IMPRESSION/PLAN: 4 xray views of the right knee joint were ordered and interpreted by me. Xrays demonstrate Mild narrowing of the right knee. Mild right knee DJD. Continue current conservative treatment. Medication management: Meloxicam 7.5mg prescribed today. Brace: Continue use of brace, as needed Therapy: Referral placed to physical therapy placed today. This office visit encompasses care, provided by me, who is serving as the continued focal point for the patient's chronic pain and longitudinal orthopedic condition. Chronic orthopedic condition/s for this encounter may include arthritis, otherwise possibly listed as degenerative joint disease (DJD), osteoarthritis (OA), or other common chronic orthopedic conditions. Follow-up: 6-8 weeks for office visit re-evaluation. KNEE EXAM LEFT RIGHT Inspection No effusion. No deformity. Mild swelling. No deformity. Paltation No tenderness to palpation. No tenderness to palpation. ROM 0-130 degrees 0-130 degrees Strength 5/5 in flexion & extension 5/5 in flexion and extension Gait: Non-antalgic Karina: No laxity and firm end point. Posterior drawer: No laxity and firm end point. No laxity with varus/valgus maneuver. Aram: Negative. Visit Vitals Temp 98.2 F (36.8 C) (Temporal) Ht 1.702 m (5' 7) Wt 59.2 kg (130 lb 9.6 oz) BMI 20.45 kg/m *Time components listed in minutes below. This data may or may not be needed for insurance reimbursement purposes. Reviewing clinical note(s) from previous visit/ER/urgent care/PCP/other specialists 4 Review of medical history 4 Review of medical education manager or customer service trainer note 4 Independently obtain and review medical history and history of present illness with patient 4 Other counseling and coordination of care 7 Updating patient chart, documentation of clinical encounter and signing of orders 7 Medication ordering and discussion of risks, benefits and alternatives 3 PT ordering and discussion of expectations including proper progression 3 *Portions of this note may have been created with play140, other software, or a scribe, which leads to grammatical and typographical errors which are not business services representative of the intent with my spoken words. Chief Complaint Patient presents with Right Knee - Pain Pain Radiation To: occ. down leg to ankle Pain Duration: 2023, past surgery 2016. February 2024 while runnning knee popped and had swelling. Pain Frequency: frequent Pain Quality: aching, sharp, shooting, soreness, radiating, dull Factors That Aggravate Pain: activity (prolong walking/standing, stairs.) Factors That Relieve Pain: rest Here for initial consultation for right knee pain. A self referral, by [employer]. 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 In 2017 in [facility] she had a right knee menisectomy. She has had pain in the right knee ever since. Dee reports having some mechanical symptoms in the right knee. She will have radiating pain down to the right ankle. She has been wearing a knee brace. Has completed physical therapy. History of Sjogren's syndrome. Pertinent medical records and imaging reviewed. IMPRESSION/PLAN: 4 xray views of the right knee joint were ordered and interpreted by me. Xrays demonstrate Mild narrowing of the right knee. Mild right knee DJD. Continue current conservative treatment. Medication management: Meloxicam 7.5mg prescribed today. Brace: Continue use of brace, as needed Therapy: Referral placed to physical therapy placed today. This office visit encompasses care, provided by me, who is serving as the continued focal point for the patient's chronic pain and longitudinal orthopedic condition. Chronic orthopedic condition/s for this encounter may include arthritis, otherwise possibly listed as degenerative joint disease (DJD), osteoarthritis (OA), or other common chronic orthopedic conditions. Follow-up: 6-8 weeks for office visit re-evaluation. KNEE EXAM LEFT RIGHT Inspection No effusion. No deformity. Mild swelling. No deformity. Paltation No tenderness to palpation. No tenderness to palpation. ROM 0-130 degrees 0-130 degrees Strength 5/5 in flexion & extension 5/5 in flexion and extension Gait: Non-antalgic Karina: No laxity and firm end point. Posterior drawer: No laxity and firm end point. No laxity with varus/valgus maneuver. Aram: Negative. Visit Vitals Temp 98.2 F (36.8 C) (Temporal) Ht 1.702 m (5' 7) Wt 59.2 kg (130 lb 9.6 oz) BMI 20.45 kg/m *Time components listed in minutes below. This data may or may not be needed for insurance reimbursement purposes. Reviewing clinical note(s) from previous visit/ER/urgent care/PCP/other specialists 4 Review of medical history 4 Review of medical education manager or customer service trainer note 4 Independently obtain and review medical history and history of present illness with patient 4 Other counseling and coordination of care 7 Updating patient chart, documentation of clinical encounter and signing of orders 7 Medication ordering and discussion of risks, benefits and alternatives 3 PT ordering and discussion of expectations including proper progression 3 *Portions of this note may have been created with play140, other software, or a scribe, which leads to grammatical and typographical errors which are not business services representative of the intent with my spoken words. Clinical assistant store manager trainee/AT/DENIA was acting as a scribe today for this note. I have performed all essential components of the history, and physical exam. I have confirmed the diagnosis and developed a plan of care at this visit. I have reviewed the note following the visit and have made edits as appropriate to my evaluation and plan of care. Tiffany Pérez DO documented in this encounter [facility] Evaluation note Diagnosis Chronic pain of right knee- Primary Primary osteoarthritis of right knee Primary localized osteoarthrosis, lower leg [facility] Diagnosis Chronic pain of right knee [facility] assessment information availableWCleveland Clinic Work Phone: Evaluation note* Diagnosis Primary localized osteoarthritis of right knee- Primary [facility] Diagnosis Primary localized osteoarthritis of right knee- Primary [facility]* Diagnosis Chronic pain of right knee- Primary [facility]* Diagnosis Sore throat- Primary Acute pharyngitis Exposure to confirmed case of COVID-19 documented [facility]* Diagnosis Chronic pain of right knee- Primary [facility]* Diagnosis Other tear of lateral meniscus of right knee, unspecified whether old or current tear, initial encounter- Primary [facility] Diagnosis Tear of lateral meniscus of right knee, unspecified tear type, unspecified whether old or current tear, subsequent encounter- Primary documented in this [facility]* Diagnosis S/P right knee arthroscopy- Primary Other postprocedural status [facility]* Diagnosis Low back pain, unspecified back pain laterality, unspecified chronicity, unspecified whether sciatica present Bilateral leg pain Pain in limb Bilateral leg numbness Disturbance of skin sensation Sacroiliac joint pain Disorders of sacrum [facility]* Attachments The following attachments cannot be sent through Care Everywhere. * Coronavirus Disease (COVID-19): Exposure: Quick List (Citizen Of [place]) documented in [facility] HospitalReason for referral (narrative)No reason for referral information availableWCleveland Clinic Work Phone: Reason for visit Narrative* Auth/Cert Specialty Diagnoses / Procedures Referred By Concetta adames Referred To Contact Diagnoses Other tear of lateral meniscus of right knee, unspecified whether old or current tear, initial encounter Other tear of lateral meniscus of right knee, unspecified whether old or current tear, initial encounter [N13.281C] Procedures [facility] KNE SURG W/MENISCECTOMY MED/LAT W/SHVG ARTHROSCOPY KNEE W/ MENISCECTOMY Lore Smith MD [address] [facility] [address] [place] [address] Phone: tel: [facility] [address] [place] [address] Referral ID Status Reason Start Date Expiration Date Visits Re quested Visits Authorized [id number] 1 1 [facility] for visit Narrative* Radiology (Routine) - Open Specialty Diagnoses / Procedures Referred By Contac t Referred To Contact Diagnoses Low back pain, unspecified back pain laterality, unspecified chronicity, unspecified whether sciatica present Bilateral leg pain Bilateral leg numbness Sacroiliac joint pain Procedures EMG & NERVE CONDUCTION Ana Greco DO Phone: tel: fax: Dash Vazquez MD Phone: tel: fax: Referral ID Status Reason Start Date Expiration Date Visits Re quested Visits Authorized [id number] Open 03/20/2025 04/14/2026 1 1 [facility] Chief Complaint and Reason for Visit Chief Complaint Admit Date Sjogren syndrome December 15, 2024 1:02 pm Chief Complaint Admit Date Sjogren syndrome December 15, 2024 1:02 pm SCREENING December 27, 2024 10: 53am Summary Purpose Family History No Family History Records FoundNo Family History Records FoundNo Family History Records FoundNo Family History Records FoundNo Family History Records Found Advance Directives No Advanced Directives Records FoundNo Advanced Directives Records FoundNo Advanced Directives Records FoundNo Advanced Directives Records FoundNo Advanced Directives Records Found Additional Source Comments Reason for Visit (unrecogniz ed section and content) Reason Comments Pain Reason Comments Physical Therapy Specialty Diagnoses / Procedures Referred By Contac t Referred To Contact PHYSICAL THERAPY Diagnoses RT KNEE IN PAIN EVAL Procedures PHYSICAL THERAPY EVALUATION HIGH COMPLEX 45 MINS NEW RS PT ORTH Tiffany Tim, DO [address] [address] Phone: tel: fax: [facility] [address] [address] Phone: tel: fax: Referral ID Status Reason Start Date Expiration Date V isits Requested Visits Authorized [id number] Authorized 09/18/2024 09/12/2025 60 60 Reason Comments Pain Reason Comments Cough Reason Comments MRI Results Reason Comments Consult New pt w/ right knee pain. Prev saw Dr. Pérez on 02/06/25 and was referred. XR and MRI completed. Reports injury occurred during running and felt pop that occurred last year. C/o medial knee pain w/ tingling along proximal aspect of calf. Reports mechanical symptoms and instability. Knee ROM limited in flx. Here for consult. Prev hx right knee meniscal sx 2017. Hx of Sjorgen's disease. Tx: HEP, PT, Rx medication. 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 Reports she is doing okay with current pain level 4/10. Denies CP, SOB, or fevers. No observable redness or drainage from incisions. She does state having mild calf soreness but attributes to exercises. C/o burning sensation on medial aspect aspect of knee with residual swelling and bruising. Here for follow-up. Care Teams (unrecognized sec tion and content) Bait Man Relationship Specialty Start Date End Date Self, Self PCP - General Other 10/25/24 Bait Man Relationship Specialty Start Date End Date Self, Self PCP - General Other 10/25/24 Team Status: Active Member Role Status Dates Dr. Yasmine Martinez MD Primary Care Provider Active Team Status: Inactive Member Role Status Dates Dr. Yasmine Martinez MD Primary Care Provider Active Start: December 15, 2024 End: December 15, 2024 Dr. Yasmine Martinez MD Attending Provider Active St art: December 15, 2024 End: December 15, 2024 Dr. Yasmine Martinez MD Referring Provider Active St art: December 15, 2024 End: December 15, 2024 Team Status: Inactive Member Role Status Dates Dr. Yasmine Martinez MD Primary Care Provider Active Start: December 27, 2024 End: December 27, 2024 Dr. Yasmine Martinez MD Attending Provider Active St art: December 27, 2024 End: December 27, 2024 Dr. Yasmine Martinez MD Referring Provider Active St art: December 27, 2024 End: December 27, 2024 Bait Man Relationship Specialty Start Date End Date Self, Self PCP - General Other 10/25/24 Bait Man Relationship Specialty Start Date End Date Self, Self PCP - General Other 10/25/24 Bait Man Relationship Specialty Start Date End Date Self, Self PCP - General Other 10/25/24 Bait Man Relationship Specialty Start Date End Date Yasmine Martinez MD [address] [place], [place] [id number] PCP - General Family Medicine 02/26/25 Bait Man Relationship Specialty Start Date End Date Yasmine Martinez MD [address] [place] [place], [place] [id number] PCP - General Family Medicine 02/26/25 Bait Man Relationship Specialty Start Date End Date Yasmine Martinez MD [address] [place] [id number] PCP - General Family Medicine 02/26/25 Goals (unrecognized section and content) Goals may be documented in a n alternate sectionGoals may be documented in an alternate section Source Comments (unrecognize d section and content) In the event this informatio n is protected by the Federal Confidentiality of Alcohol and Drug Abuse Patient Records regulations: The Federal rules restrict any use of the information to criminally investigate or prosecute any alcohol or drug abuse patient.[facility] the event this information is protected by the Federal Confidentiality of Alcohol and Drug Abuse Patient Records regulations: The Federal rules restrict any use of the information to criminally investigate or prosecute any alcohol or drug abuse patient.[facility] INFORMATION SOURCE (unrecogn ized section and content) DATE CREATED AUTHOR 01/16/2025 [facility] DATE CREATED AUTHOR AUTHOR'S ORGANIZ ATION 04/06/2025 [facility] DATE CREATED AUTHOR AUTHOR'S ORGANIZ ATION 04/07/2025 [facility] DATE CREATED AUTHOR AUTHOR'S ORGANIZ ATION 04/20/2025 [facility] DATE CREATED AUTHOR AUTHOR'S ORGANIZ ATION 04/26/2025 [facility] Continuous Active and Recently Administ ered Medications (unrecognized section and content) Medication Order 03/24/2025 03/25/2025 03/26/2025 Lactated ringers IV solution Intravenous, at 20 mL/hr, CONTINUOUS, Starting on Wed03/26/25 at 0630, Until Wed03/26/25 at 1247, Pre-op/Pre-Proc 0803 ($$New Bag$$ - Provider: DHAVAL Gentile)0840 (Anesthesia Volume Adjustment - Provider: DHAVAL Gentile)0936 (Stopped - Provider: Tina Bartlett RN) Sodium chloride 0.9% IV solution Intravenous, at 20 mL/hr, CONTINUOUS, Starting on Wed03/26/25 at 0630, Until Wed03/26/25 at 1247, Pre-op/Pre-Proc 0630 (Canceled Entry - Provider: System Discharge - Comment: Automatically canceled at discontinue of medication order) PRN Medication Order 03/24/2025 03/25/2025 03/26/2025 ceFAZolin (ANCEF) 2 g in dextrose 100 mL premix IVPB (COMPLETED) 2 g, Intravenous, Administer over 30 Minutes, MERCHANDISE FLOW MANAGER TO PROCEDURE, 1 dose, Starting on Wed03/26/25 at 0625, Until Wed03/26/25 at 0808, Other, -ANTIBIOTICS ARE TO BE STARTED 15-60 MINUTES PRIOR TO INCISION, Pre-op/Pre-Proc 0803 ($$New Bag$$ - Provider: DHAVAL Gentile) fentaNYL (SUBLIMAZE) injection 25 mcg (COMPLETED) 25 mcg, Intravenous, Administer over 2 Minutes, EVERY 10 MINUTES NEEDED, 4 doses, Starting on Wed03/26/25 at 0838, Until Wed03/26/25 at 0931, Severe Pain, Recovery 0902 (Given - Provid er: Tina Bartlett RN)0908 (Given - Provider: Tina Bartlett RN)0926 (Given - Provider: Tina Bartlett RN)0929 (Given - Provider: Tina Bartlett RN) Haloperidol lactate (HALDOL) injection 1 mg 1 mg, Intravenous, EVERY 1 HOUR NEEDED, 2 doses, Starting on Wed03/26/25 at 0838, Until Wed03/26/25 at 1247, Nausea, SECOND line antiemetic, Recovery 1001 (Given - Provid er: Tina Bartlett RN) lidocaine 0.9% buffered in sodium phosphate injection SOSY 1 mL 1 mL, Intradermal, ONCE NEEDED, 1 dose, Starting on Wed03/26/25 at 0625, Until Wed03/26/25 at 1247, Other, Use for peripheral IV insertion, Use when inserting peripheral IV., Pre-op/Pre-Proc Lidocaine-epinephrine 1%-1:108304 injection (CANCELED) NEEDED, Starting on Wed03/26/25 at 0819, Until Wed03/26/25 at 0851, Intra-op/Intra-Proc 0819 (Given - Provid er: Lore Smith MD) Ondansetron 4mg/2ml (ZOFRAN) injection 4 mg (COMPLETED) 4 mg, Intravenous, ONCE NEEDED, 1 dose, Starting on Wed03/26/25 at 0838, Until Wed03/26/25 at 0948, Nausea / Vomiting, FIRST line antiemetic, Do not administer within 6 hours of intra-operative dose., Recovery 0948 (Given - Provid er: Tina Bartlett RN) oxyCODONE (ROXICODONE) tablet 5 mg 5 mg, Oral, EVERY 4 HOURS NEEDED, Starting on Wed03/26/25 at 0838, Until Wed03/26/25 at 1247, Moderate Pain, Recovery 0948 (Given - Provid er: Tina Bartlett RN) oxyCODONE (ROXICODONE) tablet 5 mg (COMPLETED) 5 mg, Oral, NEEDED, 1 dose, Starting on Wed03/26/25 at 0838, Until Wed03/26/25 at 0859, Moderate Pain, May give once at least one hour post oxycodone prn order if dose previously documented as ineffective and did not result in adverse effects (RR less than 10, negative change in RASS of 2 or more). , Recovery 0859 (Given - Provid er: Tina Bartlett RN) FOR RECORDS PERTAINING TO PATIENTS WHO ARE OR HAVE BEEN ENROLLED IN A CHEMICAL DEPENDENCY/SUBSTANCEABUSE PROGRAM, SOME INFORMATION MAY BE OMITTED. This clinical summary was aggregated from multiple sources. Caution should be exercised in using it in the provision of clinical care. This summary normalizes information from multiple sources, and as a consequence, information in this document may materially change the coding, format and clinical context of patient data. In addition, data may be omitted in some cases. CLINICAL DECISIONS SHOULD BE BASED ON THE PRIMARY CLINICAL RECORDS. [facility] [employer] [facility]. provides no warranty or guarantee of the accuracy or completeness of information in this document.
== END | disposition home or self-care (01) ==
LOC: OPBD 12:20
PROVIDERS: PCP Family Medicine; Referring Provider Family Medicine; Visit Provider Family Medicine
DX: S22.050A Wedge compression fracture of T5-T6 vertebra, initial encounter for closed fracture (principal)
CPT/HCPCS: 77080

== ENCOUNTER → 2025-05-24 | Outpatient (CLI) | payer BC, SELFPAY ==
--- NOTE | 2025-05-24 18:36 | US_ITS ---
PROCEDURE: PELVIC (NON ) 05/24/2025 REASON FOR EXAM: LEIOMYOMA TECHNIQUE: Procedure Code: USPEL Modality: US Procedure: PELVIC (NON ). Transabdominal grayscale, color and spectral Doppler pelvic ultrasound. COMPARISON: None. FINDINGS: ENDOMETRIUM: Homogeneous. Normal thickness of 3.0 mm. UTERUS: Anteverted. Enlarged measuring 12.1 x 6.5 x 9.7 cm. Heterogeneous 6.7 x 7.3 x 6.2 cm myometrial lesion with multiple echogenic calcifications. CERVIX: Normal size and contour. RIGHT OVARY: Not visualized. LEFT OVARY: Normal size and appearance measuring 2.7 x 1.2 x 1.8 cm. Normal follicles. Normal blood flow. No adnexal mass. FREE FLUID: No free fluid. US/Pelvic (Non ) IMPRESSION: Calcified uterine leiomyoma. Reading Location: [id number]
== END | disposition home or self-care (01) ==
LOC: US 18:25
PROVIDERS: PCP Family Medicine; Visit Provider Family Medicine
DX: D25.9 Leiomyoma of uterus, unspecified (principal)
CPT/HCPCS: 76856

== ENCOUNTER → 2025-08-14 | Outpatient (CLI) | payer BC, SELFPAY ==
[2025-08-14 18:35] LABS: FOLATES,SERUM (FOLIC ACID) 16.90 ng/mL (4.60-34.80)
[2025-08-14 18:59] LABS: Ferritin 54 ng/mL (22-378); Vitamin B12 3633 pg/mL (180-914); Vitamin D,25 Hydroxy 30.4 ng/mL (30-100)
[2025-08-16 08:09] LABS: PROGESTERONE 0.2 ng/mL (.)
[2025-08-18 13:08] LABS: Zinc, Plasma or Serum 62 ug/dL (44-115)
== END | disposition home or self-care (01) ==
LOC: MTLAB 16:14
PROVIDERS: PCP Family Medicine; Referring Provider Family Medicine; Visit Provider Family Medicine
DX: E55.9 Vitamin D deficiency, unspecified (principal); L65.9 Nonscarring hair loss, unspecified; N95.9 Unspecified menopausal and perimenopausal disorder; M35.00 Sjogren syndrome, unspecified
CPT/HCPCS: 36415; 82306; 82607; 82670; 82728; 82746; 84144; 84443; 84630